=== PATIENT | male | born 1980 | race American Indian/Alaskan Native ===

== ENCOUNTER 2021-10-22 18:49 | Inpatient (IN) | payer SELFPAY ==
[2021-10-22] MEDS ORDERED: ACETAMINOPHEN 500 MG TAB PO ONE (22:27)
[2021-10-22] MEDS ORDERED: IBUPROFEN 600 MG TAB PO ONE (22:27)
[2021-10-22] MEDS ORDERED: predniSONE 20 MG TAB PO ONE (22:28)
--- NOTE | 2021-10-22 22:52 | XRay Report ---
CHEST 2 VIEWS INDICATION / CLINICAL INFORMATION: cough. COMPARISON: None available. FINDINGS: SUPPORT DEVICES: None. HEART / MEDIASTINUM: Heart size and mediastinal contour appear within normal limits. LUNGS / PLEURA: Cavitary lesion with air-fluid level demonstrated right upper lobe with surrounding g round glass/airspace opacification present. Prominence of right hilum suggests possible adenopathy. L eft lung clear. No pneumothorax. BONES: No significant osseous abnormality. ADDITIONAL FINDINGS: No significant additional findings. IMPRESSION: 1. Fluid-filled cavitary lesion right upper lobe with surrounding groundglass and airspace opacificat ion. Differential considerations include intrapulmonary abscess, mycobacterial infection including TB , neoplasm, and infected pulmonary cyst. 2. Right hilar prominence may reflect presence of adenopathy. CT with intravenous contrast recommende d for further evaluation of the chest. Signer Name: Chuck Arias II, MD Signed: 10/22/2021 10:48 PM Workstation Name: [id number]
[2021-10-22] MEDS ORDERED: cefTRIAXone/NS 1 GM/50 ML 1 GM/50 ML BAG IV ONE (23:36)
[2021-10-22] MEDS ORDERED: AZITHROMYCIN 250 MG TAB PO ONE (23:38)
[2021-10-23 00:01] LABS: Basophils % (Auto) 0.4 % (0.0-1.8); Eosinophils # (Auto) 0.1 K/mm3 (0.0-0.4); Hematocrit 31.8 % (35.5-45.6); Hemoglobin 11.5 gm/dl (11.8-15.2); Lymphocytes # (Auto) 1.4 K/mm3 (1.2-5.4); Lymphocytes % (Auto) 14.3 % (13.4-35.0); Mean Corpuscular HGB Conc 36 % (32-34); Mean Corpuscular Volume 99 fl (84-94); Monocytes # (Auto) 0.8 K/mm3 (0.0-0.8); Monocytes % (Auto) 8.6 % (0.0-7.3); Platelet Count 442 K/mm3 (140-440); Red Blood Count 3.21 M/mm3 (3.65-5.03); Red Cell Distribution Width 13.3 % (13.2-15.2)
[2021-10-23 00:19] LABS: Alanine Aminotransferase 14 units/L (7-56); Albumin 2.8 g/dL (3.9-5); BUN/Creatinine Ratio 10; Blood Urea Nitrogen 6 mg/dL (9-20); Calcium 8.7 mg/dL (8.4-10.2); Hemolysis Index 12
--- NOTE | 2021-10-23 02:01 | Cat Scan Report ---
CT CHEST WITH CONTRAST INDICATION / CLINICAL INFORMATION: DYSPNEA, PULMONARY ABSCESS VS TB. TECHNIQUE: Axial CT images were obtained through the chest after IV contrast. All CT scans at this [facility] are performed using CT dose reduction for ALARA by means of automated exposure control. COMPARISON: None available. FINDINGS: CHEST: LOWER NECK: Soft tissues and musculature of the lower neck demonstrate no significant abnormality. Th e thyroid demonstrates no significant abnormality. THORACIC AORTA: No significant abnormality. PULMONARY ARTERY:No significant abnormality. Pulmonary artery not sufficiently opacified to evaluate for pulmonary artery embolus. HEART: No significant abnormality. CORONARY ARTERY CALCIFICATION: Absent -- None. MEDIASTINUM / MARYBETH: No significant abnormality. ESOPHAGUS: No significant abnormality. LYMPH NODES: Right hilar adenopathy with nodes measuring up to 9-10 mm and 16 mm short axis. Borderli ne right paratracheal adenopathy. LUNGS: Airspace consolidation right upper lobe with surrounding areas of groundglass attenuation cont aining thickened intralobular septal lines. Additionally, thick walled cavitary lesion measuring 4.0 x 4.3 cm containing air-fluid level is present. Focal airspace attenuation is noted within the superi or segment right lower lobe as well as along the anterior margin of the right upper lobe and within t he lateral segment of the right middle lobe. PLEURA: No pleural effusion. No pneumothorax. THORACIC SOFT TISSUES: No significant abnormality of the chest wall or upper thoracic musculature. OSSEOUS STRUCTURES: No significant abnormality of included osseous structures. UPPER ABDOMEN: No significant abnormality. ADDITIONAL CHEST FINDINGS: None. IMPRESSION: 1. Consolidating process thought to reflect infection right upper lobe with cavitary fluid-filled les ion compatible with abscess. A specific pattern of nodularity. Differential considerations include se quelae of aspiration, other infectious sources of abscess, mycobacterial infection not entirely exclu ded. Additional airspace attenuation/infectious process suggested lateral segment right middle lobe a nd minimal involvement of anterior right upper lobe. 2. Probable reactive adenopathy right hilum and right paratracheal region. Signer Name: Chuck Arias II, MD Signed: 10/23/2021 1:57 AM Workstation Name: [id number]
--- NOTE | 2021-10-23 02:27 | Emergency Department Report ---
- General Chief Complaint: Upper Respiratory Infection Stated Complaint: DRY COUGH/CHEST PAIN Source: patient Mode of arrival: Ambulatory Limitations: No Limitations - History of Present Illness Initial Comments: Patient is a 40-year-old -Burmese male with no past medical history except heavy tobacco abuse who presents to the ED with complaint of acute onset persistent shortness of breath, persistent cough with yellowish-green sputum, pleuritic chest pain and nasal and sinus congestion for the last 1 week, worse in the last 4 days. Patient states that the symptoms have been constant and persistent and that in the last 24 hours he has not been able to breathe because of worsening pain in his chest with deep inhalation and persistent cough. Patient also complains of persistent diffuse body aches and pains, generalized weakness and fatigue and subjective fever and chills. Patient states that other people near him have had similar symptoms. Patient denies dizziness, syncope, headache, nausea and vomiting, diarrhea, dysuria, urinary frequency and urgency, abdominal pain, back pain, neck pain, sore throat, change in vision, low back pain or hematemesis and hemoptysis. MD Complaint: cough, nasal congestion, other (Shortness of breath) -: Gradual, days(s) (5) Severity: severe Severity scale (0 -10): 7 Quality: sharp, aching Consistency: constant Improves With: nothing Worsens With: nothing Context: sick contacts Associated Symptoms: denies other symptoms, fever, chills, myalgias, headache, rhinorrhea, nasal congestion, cough, shortness of breath. denies: diaphoresis, sore throat, stiff neck, chest pain, abdominal pain, nausea, vomiting, diarrhea, dysuria, rash, right sweats, weight loss, epistaxis, hoarseness, ear pain, other Treatments Prior to Arrival: none - Related Data Allergies Allergy/AdvReac Type Severity Reaction Status Date / Time No Known Allergies Allergy Verified 10/22/21 19:46 ED Review of Systems ROS: Stated complaint: DRY COUGH/CHEST PAIN Other details as noted in HPI Constitutional: chills, fever, malaise Eyes: denies: eye pain, eye discharge, vision change ENT: congestion. denies: ear pain, throat pain Respiratory: cough, shortness of breath. denies: wheezing Cardiovascular: chest pain (Pleuritic chest pain). denies: palpitations Endocrine: no symptoms reported Gastrointestinal: denies: abdominal pain, nausea, diarrhea Genitourinary: denies: urgency, dysuria Musculoskeletal: denies: back pain, joint swelling, arthralgia Skin: denies: rash, lesions Neurological: denies: headache, weakness, paresthesias Psychiatric: denies: anxiety, depression Hematological/Lymphatic: denies: easy bleeding, easy bruising ED Physical Exam - General Limitations: No Limitations General appearance: alert, in no apparent distress - Head Head exam: Present: atraumatic, normocephalic, normal inspection - Eye Eye exam: Present: normal appearance, PERRL, EOMI Pupils: Present: normal accommodation - ENT ENT exam: Present: normal orophraynx, mucous membranes moist, TM's normal bilaterally, normal external ear exam, other (Grossly congested nasal passages) - Neck Neck exam: Present: normal inspection, full ROM. Absent: tenderness - Respiratory Respiratory exam: Present: rhonchi (Right middle and upper lobe). Absent: normal lung sounds bilaterally, respiratory distress, wheezes, rales, stridor, chest wall tenderness, accessory muscle use, decreased breath sounds, prolonged expiratory - Cardiovascular Cardiovascular Exam: Present: regular rate, normal rhythm. Absent: systolic murmur, diastolic murmur, rubs, gallop - GI/Abdominal GI/Abdominal exam: Present: soft, normal bowel sounds. Absent: tenderness, guarding, rebound, hyperactive bowel sounds, hypoactive bowel sounds, mass, bruit - Extremities Exam Extremities exam: Present: normal inspection, full ROM, normal capillary refill. Absent: tenderness - Back Exam Back exam: Present: normal inspection, full ROM. Absent: tenderness, CVA tenderness (R), CVA tenderness (L), muscle spasm, paraspinal tenderness, vertebral tenderness - Neurological Exam Neurological exam: Present: alert, oriented X3, CN II-XII intact, normal gait, reflexes normal - Psychiatric Psychiatric exam: Present: normal affect, normal mood - Skin Skin exam: Present: warm, dry, intact, normal color. Absent: rash ED Course Vital Signs 10/22/21 19:45 Temperature 99.9 F H Pulse Rate 97 H Respiratory 18 Rate Blood Pressure 158/80 [Left] O2 Sat by Pulse 98 Oximetry ED Medical Decision Making - Lab Data Result diagrams: 10/22/21 23:44 10/22/21 23:44 - Radiology Data Radiology results: report reviewed, image reviewed [facility] [address] [place] [address] XRay Report Signed Patient: MARIAH DE GUZMAN MR#: [id number] : 1980 Acct:[id number] Age/Sex: 40 / M ADM Date: 10/22/21 Loc: ED Attending Dr: Ordering Physician: ISRA EDWARDS Date of Service: 10/22/21 Procedure(s): XR chest routine 2V Accession Number(s): [id number] cc: ISRA EDWARDS Fluoro Time In Minutes: CHEST 2 VIEWS INDICATION / CLINICAL INFORMATION: cough. COMPARISON: None available. FINDINGS: SUPPORT DEVICES: None. HEART / MEDIASTINUM: Heart size and mediastinal contour appear within normal limits. LUNGS / PLEURA: Cavitary lesion with air-fluid level demonstrated right upper lobe with surrounding ground glass/airspace opacification present. Prominence of right hilum suggests possible adenopathy. Left lung clear. No pneumothorax. BONES: No significant osseous abnormality. ADDITIONAL FINDINGS: No significant additional findings. IMPRESSION: 1. Fluid-filled cavitary lesion right upper lobe with surrounding groundglass and airspace opacification. Differential considerations include intrapulmonary abscess, mycobacterial infection including TB, neoplasm, and infected pulmonary cyst. 2. Right hilar prominence may reflect presence of adenopathy. CT with intravenous contrast recommended for further evaluation of the chest. Signer Name: Chauncey Shah II, MD Signed: 10/22/2021 10:48 PM Workstation Name: [id number] Transcribed By: ALIDA Dictated By: CHAUNCEY SHAH II, MD Electronically Authenticated By: CHAUNCEY SHAH II, MD Signed Date/Time: 10/22/212247 DD/ 45 TD/TT: [facility] [address] [place] [address] Cat Scan Report Signed Patient: MARIAH DE GUZMAN MR#: [id number] : 1980 Acct:[id number] Age/Sex: 40 / M ADM Date: 10/22/21 Loc: ED Attending Dr: Ordering Physician: ISRA EDWARDS Date of Service: 10/22/21 Procedure(s): CT chest w con Accession Number(s): [id number] cc: ISRA EDWARDS CT CHEST WITH CONTRAST INDICATION / CLINICAL INFORMATION: DYSPNEA, PULMONARY ABSCESS VS TB. TECHNIQUE: Axial CT images were obtained through the chest after IV contrast. All CT scans at this location are performed using CT dose reduction for ALARA by means of automated exposure control. COMPARISON: None available. FINDINGS: CHEST: LOWER NECK: Soft tissues and musculature of the lower neck demonstrate no significant abnormality. The thyroid demonstrates no significant abnormality. THORACIC AORTA: No significant abnormality. PULMONARY ARTERY:No significant abnormality. Pulmonary artery not sufficiently opacified to evaluate for pulmonary artery embolus. HEART: No significant abnormality. CORONARY ARTERY CALCIFICATION: Absent -- None. MEDIASTINUM / MARYBETH: No significant abnormality. ESOPHAGUS: No significant abnormality. LYMPH NODES: Right hilar adenopathy with nodes measuring up to 9-10 mm and 16 mm short axis. Borderline right paratracheal adenopathy. LUNGS: Airspace consolidation right upper lobe with surrounding areas of groundglass attenuation containing thickened intralobular septal lines. Additionally, thick walled cavitary lesion measuring 4.0 x 4.3 cm containing air-fluid level is present. Focal airspace attenuation is noted within the superior segment right lower lobe as well as along the anterior margin of the right upper lobe and within the lateral segment of the right middle lobe. PLEURA: No pleural effusion. No pneumothorax. THORACIC SOFT TISSUES: No significant abnormality of the chest wall or upper thoracic musculature. OSSEOUS STRUCTURES: No significant abnormality of included osseous structures. UPPER ABDOMEN: No significant abnormality. ADDITIONAL CHEST FINDINGS: None. IMPRESSION: 1. Consolidating process thought to reflect infection right upper lobe with cavitary fluid-filled lesion compatible with abscess. A specific pattern of nodularity. Differential considerations include sequelae of aspiration, other infectious sources of abscess, mycobacterial infection not entirely excluded. Additional airspace attenuation/infectious process suggested lateral segment right middle lobe and minimal involvement of anterior right upper lobe. 2. Probable reactive adenopathy right hilum and right paratracheal region. Signer Name: Chauncey Shah II, MD Signed: 10/23/2021 1:57 AM Workstation Name: [id number] Transcribed By: ALIDA Dictated By: CHAUNCEY SHAH II, MD Electronically Authenticated By: CHAUNCEY SHAH II, MD Signed Date/Time: 10/23/21156 DD/ 1 TD/TT: - Medical Decision Making This is a 40-year-old -Burmese male with no past medical history except heavy tobacco abuse who presents to the ED with complaint of acute onset persistent shortness of breath, persistent cough with yellowish-green sputum, pleuritic chest pain and nasal and sinus congestion for the last 1 week, worse in the last 4 days. Patient states that the symptoms have been constant and persistent and that in the last 24 hours he has not been able to breathe because of worsening pain in his chest with deep inhalation and persistent cough. Patient also complains of persistent diffuse body aches and pains, generalized weakness and fatigue and subjective fever and chills. Patient states that other people near him have had similar symptoms. In the ED, patient is alert and oriented x3 and is not in any distress. All lab test results were reviewed and are all nonactionable. Initial chest x-ray showed fluid-filled cavitary lesion right upper lobe with surrounding groundglass and airspace opacification. Differential considerations include intrapulmonary abscess, mycobacterial infection including TB, neoplasm, and infected pulmonary cyst. In addition, it also showed right hilar prominence may reflect presence of adenopathy. CT with intravenous contrast recommended for further evaluation of the chest. The chest CT with IV contrast showed consolidating process thought to reflect infection right upper lobe with cavitary fluid-filled lesion compatible with abscess. A specific pattern of nodularity. Differential considerations include sequelae of aspiration, other infectious sources of abscess, mycobacterial infection not entirely excluded. Additional airspace attenuation/infectious process suggested lateral segment right middle lobe and minimal involvement of anterior right upper lobe. Additionally, it also showed probable reactive adenopathy right hilum and right paratracheal region. Patient was empirically treated in the ED with pain medication and Rocephin 1 g IV as well as azithromycin 500 mg oral tablet and oral steroids prednisone 60 mg p.o. x1. These findings were discussed with the ED attending physician Dr. Rushing who agreed with the plan of care to admit the patient to the hospital for further evaluation given the differential diagnosis in his chest x-ray as well as on chest CT with IV contrast. I therefore paged and discussed the patient's case with the hospitalist physician on-call Dr. Roth who admitted the patient to the hospital for further evaluation and treatment. - Differential Diagnosis Pneumonia; neoplasm; TB; ACS; PE; dissection; bronchitis; Critical care attestation.: If time is entered above; I have spent that time in minutes in the direct care of this critically ill patient, excluding procedure time. ED Disposition Clinical Impression: Shortness of breath, Acute upper respiratory infection, Suspected tuberculosis Right upper lobe pneumonia Qualifiers: Pneumonia type: due to unspecified organism Qualified Code(s): J18.9 - Pneumonia, unspecified organism Disposition: 01 HOME / SELF CARE / HOMELESS Is pt being admited?: Yes Does the pt Need Aspirin: No Condition: Stable Instructions: Shortness of Breath, Adult, [id number], Upper Respiratory Infection, Adult, [id number], Community-Acquired Pneumonia, Adult, [id number], Bacterial Pneumonia (ED) Time of Disposition: 02:28 Print Language: EGYPTIAN
[2021-10-23] MEDS ORDERED: MORPHINE 4 MG/1 ML INJ IV PRN ×2 (03:21→04:19)
[2021-10-23] MEDS ORDERED: ACETAMINOPHEN 325 MG TAB PO PRN ×2 (03:21→04:19)
[2021-10-23] MEDS ORDERED: ONDANSETRON 4 MG/2 ML INJ IV PRN ×2 (03:21→04:19)
[2021-10-23] MEDS ORDERED: MORPHINE 2 MG/1 ML INJ IV PRN (04:19)
[2021-10-23] MEDS ORDERED: MAGNESIUM HYDROXIDE (MOM) ORAL LIQD UDC PO PRN (04:19)
--- NOTE | 2021-10-23 04:27 | History and Physical Report ---
History of Present Illness Date of examination: 10/23/21 Date of admission: 10/23/2021 Chief complaint: Cough Shortness of Breath History of present illness: 40-year-old -[place]ib[place] male with no significant past medical history presenting to the emergency room today complaining of shortness of breath and cough which has been ongoing for the past 5 to 6 days. Cough has been productive of some greenish or yellowish sputum. He has had some associated chest discomfort with a cough. He denies any fever or chills, no headache or dizziness and no diaphoresis. He has had some nausea but no vomiting and no abdominal pain. Patient denies any sick contacts and no recent travel. Denies any contact with anyone with COVID-19. Patient indicates that he has been fully vaccinated against COVID-19 and has also had a booster shots. Patient states he has been in an [facility] program-[employer]-whereby they are being housed and helped in getting employment. Work-up in the emergency room today, labs were essentially unremarkable. However. Chest x-ray shows fluid-filled cavitary lesion in the right upper lobe with surrounding groundglass airspace opacification. Differentials include intra pulmonary abscess, Mycobacterium infection including TB, neoplasm, infected pulmonary cyst. Right hilar prominence may reflect the presence of adenopathy. CT with IV contrast was recommended. CT scan of the chest reveals: 1. Consolidating process thought to reflect infection right upper lobe with cavitary fluid-filled lesion compatible with abscess. A specific pattern of nodularity. Differential considerations include sequelae of aspiration, other infectious sources of abscess, mycobacterial infection not entirely excluded. Additional airspace attenuation/infectious process suggested lateral segment right middle lobe and minimal involvement of anterior right upper lobe. 2. Probable reactive adenopathy right hilum and right paratracheal region. Patient started on empiric IV antibiotics. Past History Past Medical History: No medical history Past Surgical History: No surgical history Social history: smoking (Current tobbacco use) Family history: no significant family history Medications and Allergies Allergies Allergy/AdvReac Type Severity Reaction Status Date / Time No Known Allergies Allergy Verified 10/22/21 19:46 Active Meds: Active Medications Acetaminophen (Acetaminophen 325 Mg Tab) 650 mg PO Q4H PRN PRN Reason: Pain MILD(1-3)/Fever >100.5/[place] Hydrocodone Bitart/Acetaminophen (Hydrocodone/Acetaminophen 5-325 Mg Tab) 2 each PO Q6H PRN PRN Reason: Pain, Moderate (4-6) Morphine Sulfate (Morphine 4 Mg/1 Ml Inj) 4 mg IV Q4H PRN PRN Reason: Pain , Severe (7-10) Ondansetron HCl (Ondansetron 4 Mg/2 Ml Inj) 4 mg IV Q8H PRN PRN Reason: Nausea And Vomiting Sodium Chloride (Sodium Chloride 0.9% 10 Ml Flush Syringe) 10 ml IV PRN PRN PRN Reason: LINE FLUSH Review of Systems Constitutional: no fever, no chills Ears, nose, mouth and throat: no nasal congestion, no sore throat Cardiovascular: no chest pain, no palpitations Respiratory: cough, cough with sputum Gastrointestinal: no abdominal pain, no nausea, no vomiting, no diarrhea Genitourinary Male: no dysuria, no hematuria, no flank pain Musculoskeletal: no neck pain, no low back pain Integumentary: no rash, no pruritis Neurological: no headaches, no confusion Psychiatric: no anxiety, no depression Endocrine: no polyphagia, no polydipsia, no polyuria, no nocturia Exam - Constitutional Vitals: Temp Pulse Resp BP Pulse Ox 99.9 F H 97 H 18 158/80 98 10/22/21 19:45 10/22/21 19:45 10/22/21 19:45 10/22/21 19:45 10/22/21 19:45 General appearance: Present: no acute distress, well-nourished - EENT Eyes: Present: PERRL, EOM intact. Absent: scleral icterus ENT: hearing intact, clear oral mucosa, dentition normal - Neck Neck: Present: supple, normal ROM - Respiratory Respiratory effort: normal Respiratory: bilateral: diminished (Few rhonchi) - Cardiovascular Rhythm: regular Heart Sounds: Present: S1 & S2. Absent: gallop, systolic murmur, diastolic murmur, rub, click - Extremities Extremities: no ischemia, pulses intact, pulses symmetrical, No edema, normal temperature, normal color, Full ROM Peripheral Pulses: within normal limits - Abdominal General gastrointestinal: Present: soft, non-tender, non-distended, normal bowel sounds. Absent: mass - Integumentary Integumentary: Present: clear, warm, dry, normal turgor. Absent: rash - Musculoskeletal Musculoskeletal: strength equal bilaterally - Psychiatric Psychiatric: appropriate mood/affect, intact judgment & insight, memory intact, cooperative - Neurologic Neurologic: CNII-XII intact, no focal deficits, moves all extremities HEART Score - HEART Score Troponin: Troponin T < 0.010 ng/mL (0.00-0.029) 10/22/21 23:44 Results - Labs CBC & Chem 7: 10/22/21 23:44 10/22/21 23:44 Labs: Abnormal lab results 10/22/21 10/22/21 Range/Units 23:44 23:44 RBC 3.21 L (3.65-5.03) M/mm3 Hgb 11.5 L (11.8-15.2) gm/dl Hct 31.8 L (35.5-45.6) % MCV 99 H (84-94) fl MCH 36 H (28-32) pg MCHC 36 H (32-34) % Plt Count 442 H (140-440) K/mm3 [place] % (Auto) 8.6 H (0.0-7.3) % Seg Neutrophils % 75.7 H (40.0-70.0) % BUN 6 L (9-20) mg/dL Creatinine 0.6 L (0.8-1.3) mg/dL Glucose 107 H (75-100) mg/dL Albumin 2.8 L (3.9-5) g/dL Assessment and Plan Assessment: 1. Pneumonia 2. Possible lung abscess 3. Tobacco abuse Plan: 1. Patient admitted and placed on empiric IV antibiotics. 2. We will place consult to pulmonology and infectious disease for evaluation and recommendations. 3. Patient counseled on quitting tobacco abuse. DVT prophylaxis: Subcutaneous heparin CODE STATUS: Full code
[2021-10-23] MEDS ORDERED: VANCOMYCIN PHARMACY TO DOSE IV SCH (05:00)
[2021-10-23] MEDS ORDERED: VANCOMYCIN 1,250 MG in SODIUM CHLORIDE 0.9% 250ML 250 ML IV ONE (06:00)
[2021-10-23] MEDS: SODIUM CHLORIDE 0.9% 1000 ML 1,000 ML IV SCH (06:40)
[2021-10-23] MEDS: HEPARIN 5,000 UNIT/1 ML VIAL SUB-Q SCH ×3 (06:40→22:01)
[2021-10-23] MEDS: CEFEPIME/NS 2 GM/100 ML 2 GM/100 ML BAG IV SCH ×3 (08:38→21:58)
[2021-10-23 09:53] LABS: Amphetamine Screen,Urine Negative; Benzodiazepines Screen,Urine Negative; Cocaine Screen,Urine Negative; Methadone Screen,Urine Negative; Opiate Screen,Urine Negative
[2021-10-23 10:03] LABS: Cannabinoid Screen,Urine Positive
[2021-10-23 10:17] LABS: Bilirubin,Urine NEG (Negative); Blood,Urine NEG (Negative); Color,Urine Yellow (Yellow); Urobilinogen,Urine < 2.0 mg/dL (<2.0)
[2021-10-23 10:21] LABS: Mucus,Urine FEW /HPF; WBC,Urine < 1.0 /HPF (0.0-6.0)
[2021-10-23] MEDS: VANCOMYCIN/NS 1 GM/250 ML 1 GM/250 ML BAG IV SCH ×2 (15:16→23:40)
--- NOTE | 2021-10-23 20:43 | Event Note ---
Date: 10/23/21 Patient reevaluated Stable On 2 liters NC O2
--- NOTE | 2021-10-23 23:47 | Consultation ---
History of Present Illness Consult date: 10/23/21 Requesting physician: RAMILA CHAPMAN Reason for consult: dyspnea History of present illness: 40 yo with 5-7 days of cough with yellow sputum, SOB, and L anterior pleuritic chest pain. Denies fevers, chills, hemoptysis. Admits to smoking cigarettes, THC, and crack cocaine. Denies IVDA. Past History Past Medical History: No medical history Past Surgical History: No surgical history Social history: smoking (Current tobbacco use), full code. denies: prescription drug abuse, IV drug use Family history: no significant family history (no pulm issues reported) Medications and Allergies Allergies Allergy/AdvReac Type Severity Reaction Status Date / Time No Known Allergies Allergy Verified 10/22/21 19:46 Home Medications Medication Instructions Recorded Confirmed Last Taken Type No Known Home Medications [No 10/23/21 10/23/21 Unknown History Reported Home Medications] Active Meds: Active Medications Acetaminophen (Acetaminophen 325 Mg Tab) 650 mg PO Q4H PRN PRN Reason: Pain MILD(1-3)/Fever >100.5/[facility] Hydrocodone Bitart/Acetaminophen (Hydrocodone/Acetaminophen 5-325 Mg Tab) 2 each PO Q6H PRN PRN Reason: Pain, Moderate (4-6) Heparin Sodium (Porcine) (Heparin 5,000 Unit/1 Ml Vial) 5,000 unit SUB-Q Q8HR KACEY Last Admin: 10/23/21 22:01 Dose: 5,000 unit Sodium Chloride (Nacl 0.9% 1000 Ml) 1,000 mls @ 75 mls/hr IV DIRECT KACEY Last Admin: 10/23/21 06:40 Dose: 75 mls/hr Cefepime HCl (Cefepime/Ns 2 Gm/100 Ml) 2 gm in 100 mls @ 200 mls/hr IV Q8H KACEY; Protocol Last Admin: 10/23/21 21:58 Dose: 200 mls/hr Vancomycin HCl (Vancomycin/Ns 1 Gm/250 Ml) 1 gm in 250 mls @ 250 mls/hr IV Q8H KACEY Last Admin: 10/23/21 23:40 Dose: 250 mls/hr Magnesium Hydroxide (Magnesium Hydroxide (Mom) Oral Liqd Udc) 30 ml PO Q4H PRN PRN Reason: Constipation Morphine Sulfate (Morphine 4 Mg/1 Ml Inj) 4 mg IV Q4H PRN PRN Reason: Pain , Severe (7-10) Morphine Sulfate (Morphine 2 Mg/1 Ml Inj) 2 mg IV Q4H PRN PRN Reason: Pain, Moderate (4-6) Ondansetron HCl (Ondansetron 4 Mg/2 Ml Inj) 4 mg IV Q8H PRN PRN Reason: Nausea And Vomiting Sodium Chloride (Sodium Chloride 0.9% 10 Ml Flush Syringe) 10 ml IV PRN PRN PRN Reason: LINE FLUSH Sodium Chloride (Sodium Chloride 0.9% 10 Ml Flush Syringe) 10 ml IV BID KACEY Last Admin: 10/23/21 23:40 Dose: 10 ml Review of Systems All systems: negative Physical Examination Vital signs: Vital Signs Temp Pulse Resp BP Pulse Ox 99.9 F H 97 H 18 158/80 98 10/22/21 19:45 10/22/21 19:45 10/22/21 19:45 10/22/21 19:45 10/22/21 19:45 General appearance: no acute distress, alert Eyes: non-icteric Neck: supple Effort: normal Ascultation: Bilateral: clear Cardiovascular: regular rate and rhythm (no mrg) Gastrointestinal: normoactive bowel sounds, soft, non-tender, non-distended Integumentary: normal Extremities: no cyanosis, no edema, pink and warm normal mental status, non-focal exam, pupils equal and round mood appropriate, affect normal Results - Laboratory Findings CBC and BMP: 10/22/21 23:44 10/22/21 23:44 Abnormal lab findings: Abnormal Labs 10/22/21 10/22/21 10/23/21 23:44 23:44 09:00 RBC 3.21 L Hgb 11.5 L Hct 31.8 L MCV 99 H MCH 36 H MCHC 36 H Plt Count [address] [place] % (Auto) 8.6 H Seg Neutrophils % 75.7 H BUN 6 L Creatinine 0.6 L Glucose 107 H Albumin 2.8 L Ur Specific [place] 1.041 H - Diagnostic Findings Chest x-ray: report reviewed, image reviewed CT scan - chest: report reviewed, image reviewed Assessment and Plan Imp: 1. RUL cavitary/necrotizing pneumonia, r/o TB 2. Polysubstance abuse 3. Chronic nicotine dependence, cigarettes 4. Severe protein calorie malnutrition 5. Normocytic anemia Rec: 1. Airborne precautions 2. Sputum AFB smear/culture x 3 3. Quantiferon gold 4. Sputum culture for routine bacteria 5. Rapid HIV testing 6. Cont. broad spectrum ABX pending the above 7. D/c smoking/drugs Plan of care reviewed w/ patient, he understands/agrees Thanks for the consult.
[2021-10-24] MEDS: CEFEPIME/NS 2 GM/100 ML 2 GM/100 ML BAG IV SCH ×3 (05:05→21:39)
[2021-10-24] MEDS: HEPARIN 5,000 UNIT/1 ML VIAL SUB-Q SCH ×3 (05:08→21:40)
[2021-10-24 06:55] LABS: Basophils # (Auto) 0.1 K/mm3 (0.0-0.1); Basophils % (Auto) 0.6 % (0.0-1.8); Eosinophils # (Auto) 0.2 K/mm3 (0.0-0.4); Eosinophils % (Auto) 1.9 % (0.0-4.3); Hematocrit 34.3 % (35.5-45.6); Hemoglobin 11.7 gm/dl (11.8-15.2); Lymphocytes # (Auto) 1.4 K/mm3 (1.2-5.4); Lymphocytes % (Auto) 13.8 % (13.4-35.0); Mean Corpuscular HGB Conc 34 % (32-34); Mean Corpuscular Volume 101 fl (84-94); Monocytes # (Auto) 0.6 K/mm3 (0.0-0.8); Platelet Count 541 K/mm3 (140-440); Red Blood Count 3.39 M/mm3 (3.65-5.03); Red Cell Distribution Width 13.5 % (13.2-15.2)
[2021-10-24 07:08] LABS: Blood Urea Nitrogen 11 mg/dL (9-20); Calcium 8.7 mg/dL (8.4-10.2); Hemolysis Index 1
[2021-10-24 07:11] LABS: BUN/Creatinine Ratio 18
--- NOTE | 2021-10-24 08:12 | Progress Note ---
Assessment and Plan - Patient Problems (1) Cavitary pneumonia Current Visit: Yes Status: Acute (2) Cough Current Visit: Yes Status: Acute (3) Anemia Current Visit: Yes Status: Acute (4) Polysubstance abuse Current Visit: Yes Status: Acute (5) Nicotine dependence Current Visit: Yes Status: Acute Subjective Interval history: no new complaints. Reports that he has given 1 sputum sample to date Objective Vital Signs - 12hr 10/23/21 10/24/21 20:43 05:00 Temperature 98.6 F Pulse Rate 81 Respiratory 20 Rate Blood Pressure 110/68 O2 Sat by Pulse 98 98 Oximetry Constitutional: no acute distress, alert Eyes: non-icteric Neck: supple Effort: normal Ascultation: Bilateral: clear Cardiovascular: regular rate and rhythm (no mrg) Gastrointestinal: normoactive bowel sounds, soft, non-tender, non-distended Integumentary: normal Extremities: no cyanosis, no edema, pink and warm Neurologic: normal mental status, non-focal exam, pupils equal and round Psychiatric: mood appropriate, affect normal CBC and BMP: 10/24/21 06:27 10/24/21 06:27 Abnormal lab findings: Abnormal Labs 10/22/21 10/22/21 10/23/21 23:44 23:44 09:00 RBC 3.21 L Hgb 11.5 L Hct 31.8 L MCV 99 H MCH 36 H MCHC 36 H Plt Count 442 H [place] % (Auto) 8.6 H Seg Neutrophils % 75.7 H Seg Neutrophils # BUN 6 L Creatinine 0.6 L Glucose 107 H Albumin 2.8 L Ur Specific [place] 1.041 H 10/24/21 10/24/21 06:27 06:27 RBC 3.39 L Hgb 11.7 L Hct 34.3 L MCV 101 H MCH 35 H MCHC Plt Count 541 H [place] % (Auto) Seg Neutrophils % 77.7 H Seg Neutrophils # 7.8 H BUN Creatinine 0.6 L Glucose Albumin Ur Specific [place] Chest x-ray: report reviewed, image reviewed CT scan - chest: report reviewed, image reviewed
--- NOTE | 2021-10-24 08:16 | Progress Note ---
Assessment and Plan Assessment and plan: --RUL cavitary/necrotizing pneumonia, r/o TB Continue empiric antibiotics, Follow cultures Pulmonary evaluation noted and appreciated TB testing is in progress Continue oxygen titrate O2 sats to more than 90% Sputum cultures, AFB smears -- Polysubstance abuse; Strongly advised to quit recreational drug use Continue supportive care -- Chronic nicotine dependence, cigarettes Smoking cessation counseling done, risks and consequences and Sequelae of chronic tobacco use discussed in detail with the patient Answered all his questions, verbalized understanding Spent total 17 minutes --Severe protein calorie malnutrition; Nutrition supplements and supportive care Nutrition consult --Normocytic anemia; Probably secondary to underlying disease process Closely monitor H&H and transfuse as needed -- DVT prophylaxis; Subcu heparin Closely monitor the patient and adjust the management as needed Plan of care reviewed with the patient and his nurse Consults and recommendations noted and appreciated Closely monitor the patient and adjust management as needed Vital signs reviewed HIV test negative Funes PCR pending Closely monitor the patient and adjust management as needed Plan of care reviewed with patient's nurse and case management Consult ID History Interval history: I have seen and examined the patient at the bedside in droplet and airborne isolation room. Patient with right upper lobe cavitary lesion, being evaluated to rule out tuberculosis Pulmonary following, patient feels better anxious to go home Vital signs noted Hospitalist Physical - Constitutional Vitals: Temp Pulse Resp BP Pulse Ox 98.6 F 81 20 110/68 98 10/23/21 20:43 10/23/21 20:43 10/23/21 20:43 10/23/21 20:43 10/24/21 05:00 General appearance: Present: no acute distress, well-nourished - EENT Eyes: Present: PERRL, EOM intact - Neck Neck: Present: supple, normal ROM - Respiratory Respiratory effort: normal Respiratory: right: rhonchi, bilateral: diminished, negative: rales, wheezing - Cardiovascular Rhythm: regular Heart Sounds: Present: S1 & S2 - Extremities Extremities: no ischemia, No edema - Abdominal General gastrointestinal: soft, non-tender, non-distended, normal bowel sounds - Integumentary Integumentary: Present: clear, warm - Psychiatric Psychiatric: appropriate mood/affect, cooperative - Neurologic Neurologic: moves all extremities HEART Score - HEART Score Troponin: Troponin T < 0.010 ng/mL (0.00-0.029) 07/23/22 23:44 Results - Labs CBC & Chem 7: 10/24/21 06:27 10/24/21 06:27 Labs: Laboratory Last Values WBC 10.1 K/mm3 (4.5-11.0) 10/24/21 06:27 RBC 3.39 M/mm3 (3.65-5.03) L 10/24/21 06:27 Hgb 11.7 gm/dl (11.8-15.2) L 10/24/21 06:27 Hct 34.3 % (35.5-45.6) L 10/24/21 06: MCV 101 fl (84-94) H 10/24/21 06: MCH 35 pg (28-32) H 10/24/21 06: MCHC 34 % (32-34) 10/24/21 06: RDW 13.5 % (13.2-15.2) 10/24/21 06:27 Plt Count 541 K/mm3 (140-440) H 10/24/21 06:27 Lymph % (Auto) 13.8 % (13.4-35.0) 10/24/21 06: [place] % (Auto) 6.0 % (0.0-7.3) 10/24/21 06: Eos % (Auto) 1.9 % (0.0-4.3) 10/24/21 06: Baso % (Auto) 0.6 % (0.0-1.8) 10/24/21 06: Lymph # (Auto) 1.4 K/mm3 (1.2-5.4) 10/24/21 06: [place] # (Auto) 0.6 K/mm3 (0.0-0.8) 10/24/21 06:27 Eos # (Auto) 0.2 K/mm3 (0.0-0.4) 10/24/21 06: Baso # (Auto) 0.1 K/mm3 (0.0-0.1) 10/24/21 06: Seg Neutrophils % 77.7 % (40.0-70.0) H 10/24/21 06:27 Seg Neutrophils # 7.8 K/mm3 (1.8-7.7) H 10/24/21 06:27 Sodium 138 mmol/L (137-145) 10/24/21 06:27 Potassium 4.1 mmol/L (3.6-5.0) 10/24/21 06:27 Chloride 104.7 mmol/L (98-107) 10/24/21 06:27 Carbon Dioxide 26 mmol/L (22-30) 10/24/21 06:27 Anion Gap 11 mmol/L 10/24/21 06:27 BUN 11 mg/dL (9-20) 10/24/21 06:27 Creatinine 0.6 mg/dL (0.8-1.3) L 10/24/21 06:27 Estimated GFR > 60 ml/min 10/24/21 06:27 BUN/Creatinine Ratio 18 % 10/24/21 06:27 Glucose 94 mg/dL (75-100) 10/24/21 06:27 Calcium 8.7 mg/dL (8.4-10.2) 10/24/21 06:27 Total Bilirubin 0.30 mg/dL (0.1-1.2) 10/22/21 23:44 AST 19 units/L (5-40) 10/22/21 23:44 ALT 14 units/L (7-56) 10/22/21 23:44 Alkaline Phosphatase 40 units/L (35-129) 10/22/21 23:44 Troponin T < 0.010 ng/mL (0.00-0.029) 10/22/21 23:44 Total Protein 6.6 g/dL (6.3-8.2) 10/22/21 23:44 Albumin 2.8 g/dL (3.9-5) L 10/22/21 23:44 Albumin/Globulin Ratio 0.7 % 10/22/21 23:44 Urine Color Yellow (Yellow) 10/23/21 09:00 Urine Turbidity Clear (Clear) 10/23/21 09:00 Urine pH 7.0 (5.0-7.0) 10/23/21 09:00 Ur Specific [place] 1.041 (1.003-1.030) H 10/23/21 09:00 Urine Protein 30 mg/dl mg/dL (Negative) 10/23/21 09:00 Urine Glucose (UA) 50 mg/dL (Negative) 10/23/21 09:00 Urine Ketones Neg mg/dL (Negative) 10/23/21 09:00 Urine Blood Neg (Negative) 10/23/21 09:00 Urine Nitrite Neg (Negative) 10/23/21 09:00 Urine Bilirubin Neg (Negative) 10/23/21 09:00 Urine Urobilinogen < 2.0 mg/dL (<2.0) 10/23/21 09:00 Ur Leukocyte Esterase Neg (Negative) 10/23/21 09:00 Urine WBC (Auto) < 1.0 /HPF (0.0-6.0) 10/23/21 09:00 Urine RBC (Auto) 1.0 /HPF (0.0-6.0) 10/23/21 09:00 U Epithel Cells (Auto) < 1.0 /HPF (0-13.0) 10/23/21 09:00 Urine Mucus Few /HPF 10/23/21 09:00 Urine Opiates Screen Negative 10/23/21 09:00 Urine Methadone Screen Negative 10/23/21 09:00 Ur Barbiturates Screen Negative 10/23/21 09:00 Ur Phencyclidine Scrn Negative 10/23/21 09:00 Ur Amphetamines Screen Negative 10/23/21 09:00 U Benzodiazepines Scrn Negative 10/23/21 09:00 Urine Cocaine Screen Negative 10/23/21 09:00 U Marijuana (THC) Screen Positive 10/23/21 09:00 Drugs of Abuse Note Disclamer 10/23/21 09:00 HIV 1&2 Antibody Rapid Non react (Non React) 10/24/21 00:48 HIV P24 Antigen Non react (Non React) 10/24/21 00:48 Microbiology: Microbiology 10/22/21 23:44 Peripheral/Venous Blood Culture - Preliminary NO GROWTH AFTER 24 HOURS 10/23/21 00:31 Peripheral/Venous Blood Culture - Preliminary NO GROWTH AFTER 24 HOURS Real/IV: Voiding Method Toilet Active Medications - Current Medications Current Medications: Generic Name Dose Route Start Last Admin Trade Name Freq PRN Reason Stop Dose Admin Acetaminophen 650 mg 10/23/21 03:21 Acetaminophen 325 Mg Tab PO Q4H PRN Pain MILD(1-3)/Fever >100.5/[place] Hydrocodone Bitart/Acetaminophen 2 each 10/23/21 03:21 Hydrocodone/Acetaminophen 5-325 Mg Tab PO Q6H PRN Pain, Moderate (4-6) Heparin Sodium (Porcine) 5,000 unit 10/23/21 06:00 10/24/21 05:08 Heparin 5,000 Unit/1 Ml Vial SUB-Q 5,000 unit Q8HR KACEY Administration Sodium Chloride 1,000 mls @ 75 mls/hr 10/23/21 04:30 10/23/21 06:40 Nacl 0.9% 1000 Ml IV 75 mls/hr DIRECT KACEY Administration Cefepime HCl 2 gm in 100 mls @ 200 mls/hr 10/23/21 06:00 10/24/21 06:40 Cefepime/Ns 2 Gm/100 Ml IV Infused Q8H KACEY Infusion Protocol Vancomycin HCl 1 gm in 250 mls @ 250 mls/hr 10/23/21 15:00 10/24/21 05:15 Vancomycin/Ns 1 Gm/250 Ml IV Infused Q8H KACEY Infusion Magnesium Hydroxide 30 ml 10/23/21 04:19 Magnesium Hydroxide (Mom) Oral Liqd Udc PO Q4H PRN Constipation Morphine Sulfate 4 mg 10/23/21 03:21 Morphine 4 Mg/1 Ml Inj IV Q4H PRN Pain , Severe (7-10) Morphine Sulfate 2 mg 10/23/21 04:19 Morphine 2 Mg/1 Ml Inj IV Q4H PRN Pain, Moderate (4-6) Ondansetron HCl 4 mg 10/23/21 03:21 Ondansetron 4 Mg/2 Ml Inj IV Q8H PRN Nausea And Vomiting Sodium Chloride 10 ml 10/23/21 03:21 Sodium Chloride 0.9% 10 Ml Flush Syringe IV PRN PRN LINE FLUSH Sodium Chloride 10 ml 10/23/21 10:00 10/23/21 23:40 Sodium Chloride 0.9% 10 Ml Flush Syringe IV 10 ml BID KACEY Administration
[2021-10-24] MEDS: VANCOMYCIN/NS 1 GM/250 ML 1 GM/250 ML BAG IV SCH ×2 (09:00→18:47)
--- NOTE | 2021-10-24 10:01 | Electrocardiograph Report ---
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
--- NOTE | 2021-10-24 10:01 | Electrocardiograph Report ---
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
--- NOTE | 2021-10-24 18:37 | Consultation ---
History of Present Illness - Reason for Consult Consult date: 10/24/21 - History of Present Illness 40-year-old male with no past medical history presented to hospital complaining of shortness of breath and cough. This began 5 to 6 days prior to admission. The cough has been productive of sputum. He otherwise denies any other complaints. He is fully vaccinated against COVID. He was found on admission to have a likely pulmonary abscess. Given his history of substance abuse probably likely to aspiration. Afebrile since admission with a white count 10.1. Blood cultures no growth so far. Sputum cultures no growth so far, contaminated. Currently on cefepime, vancomycin. HIV negative. Normal renal function. Imaging personally reviewed: Chest CT: Consolidative process in the right upper lobe consistent with abscess. Reactive adenopathy Review of Systems: Bold if positive, otherwise negative General: fevers, chills, rigors HEENT: visual disturbance, diplopia, eye pain Respiratory: cough, sputum, hemoptysis, shortness of breath Cardiovascular: chest pain, syncope Gastrointestinal: nausea, vomiting, diarrhea, abdominal pain Genitourinary: dysuria, hematuria, flank pain Musculoskeletal: neck pain, back pain, joint pain, edema Neurologic: headaches, seizures Hematologic: easy bruising or bleeding Endocrine: night sweats, acute weight loss Skin: rash, jaundice, redness Psychiatric: suicidal, homicidal ideation Past History Past Medical History: No medical history Past Surgical History: No surgical history Social history: smoking (Current tobbacco use), full code. denies: prescription drug abuse, IV drug use Family history: no significant family history (no pulm issues reported) Medications and Allergies Allergies Allergy/AdvReac Type Severity Reaction Status Date / Time No Known Allergies Allergy Verified 10/22/21 19:46 Home Medications Medication Instructions Recorded Confirmed Last Taken Type No Known Home Medications [No 10/23/21 10/23/21 Unknown History Reported Home Medications] Active Meds: Active Medications Acetaminophen (Acetaminophen 325 Mg Tab) 650 mg PO Q4H PRN PRN Reason: Pain MILD(1-3)/Fever >100.5/[place] Hydrocodone Bitart/Acetaminophen (Hydrocodone/Acetaminophen 5-325 Mg Tab) 2 each PO Q6H PRN PRN Reason: Pain, Moderate (4-6) Heparin Sodium (Porcine) (Heparin 5,000 Unit/1 Ml Vial) 5,000 unit SUB-Q Q8HR [facility] Last Admin: 10/24/21 17:44 Dose: 5,000 unit Sodium Chloride (Nacl 0.9% 1000 Ml) 1,000 mls @ 75 mls/hr IV DIRECT [facility] Last Admin: 10/23/21 06:40 Dose: 75 mls/hr Cefepime HCl (Cefepime/Ns 2 Gm/100 Ml) 2 gm in 100 mls @ 200 mls/hr IV Q8H [facility]; Protocol Last Admin: 10/24/21 17:43 Dose: 200 mls/hr Vancomycin HCl (Vancomycin/Ns 1 Gm/250 Ml) 1 gm in 250 mls @ 250 mls/hr IV Q8H [facility] Last Infusion: 10/24/21 10:00 Dose: Infused Magnesium Hydroxide (Magnesium Hydroxide (Mom) Oral Liqd Udc) 30 ml PO Q4H PRN PRN Reason: Constipation Morphine Sulfate (Morphine 4 Mg/1 Ml Inj) 4 mg IV Q4H PRN PRN Reason: Pain , Severe (7-10) Morphine Sulfate (Morphine 2 Mg/1 Ml Inj) 2 mg IV Q4H PRN PRN Reason: Pain, Moderate (4-6) Ondansetron HCl (Ondansetron 4 Mg/2 Ml Inj) 4 mg IV Q8H PRN PRN Reason: Nausea And Vomiting Sodium Chloride (Sodium Chloride 0.9% 10 Ml Flush Syringe) 10 ml IV PRN PRN PRN Reason: LINE FLUSH Sodium Chloride (Sodium Chloride 0.9% 10 Ml Flush Syringe) 10 ml IV BID [facility] Last Admin: 10/24/21 17:44 Dose: 10 ml Physical Examination - Physical Exam Narrative exam: Physical Exam: Constitutional: Alert, cooperative. No acute distress Head, Ears, Nose: Normocephalic, atraumatic. External ears, nose normal Eyes: Conjunctivae/corneas clear. No icterus. No ptosis. Neck: Supple, no meningeal signs Oral: dentition fair, no thrush Cardiovascular: S1, S2 normal. Respiratory: Good air entry, clear to auscultation bilaterally GI: Soft, non-tender; bowel sounds normal. No peritoneal signs. Musculoskeletal: No pedal edema, no cyanosis. Skin: No rash or abscess Hem/Lymphatic: No palpable cervical or supraclavicular nodes. No lymphangitis Psych: Mood ok. Affect normal Neurological: Awake, alert, oriented. No gross abnormality - Constitutional Vitals: Vital Signs Temp Pulse Resp BP Pulse Ox 98.6 F 81 20 110/68 98 10/23/21 20:43 10/23/21 20:43 10/23/21 20:43 10/23/21 20:43 10/24/21 05:00 Temperature -Last 24 Hours Temperature 98.6 F Results - Labs CBC & Chem 7: 10/24/21 06:27 10/24/21 06:27 Labs: Abnormal lab results 10/24/21 10/24/21 Range/Units 06:27 06:27 RBC 3.39 L (3.65-5.03) M/mm3 Hgb 11.7 L (11.8-15.2) gm/dl Hct 34.3 L (35.5-45.6) % MCV 101 H (84-94) fl MCH 35 H (28-32) pg Plt Count 541 H (140-440) K/mm3 Seg Neutrophils % 77.7 H (40.0-70.0) % Seg Neutrophils # 7.8 H (1.8-7.7) K/mm3 Creatinine 0.6 L (0.8-1.3) mg/dL Assessment and Plan Cultures: Blood culture no growth so far Sputum culture contaminated A/P: 40-year-old man no past medical history now with: #Cavitary pneumonia: Likely pulmonary abscess given his history of substance abuse and likely related to his aspiration which is typically Klebsiella in nature. Awaiting AFB rule out Mycobacterium. #Polysubstance abuse Recs: -Check procalcitonin -Check Aspergillus antigen -Ordered MRSA PCR, if negative stop vancomycin -Continue cefepime for now -Add metronidazole -Follow-up AFB cultures Thank you for the consult, we will continue to follow. Burak Dickerson MD [facility] O: [phone] F: [phone]
[2021-10-24] MEDS: metroNIDAZOLE 500 MG TAB PO SCH (21:41)
[2021-10-25] MEDS: VANCOMYCIN/NS 1 GM/250 ML 1 GM/250 ML BAG IV SCH ×3 (00:53→18:00)
[2021-10-25] MEDS: guaiFENesin DM 200/20 MG ORAL LIQD 10 ML PO PRN ×3 (01:01→22:50)
[2021-10-25] MEDS: HEPARIN 5,000 UNIT/1 ML VIAL SUB-Q SCH ×3 (05:09→21:48)
[2021-10-25] MEDS: metroNIDAZOLE 500 MG TAB PO SCH ×3 (05:09→21:48)
[2021-10-25] MEDS: CEFEPIME/NS 2 GM/100 ML 2 GM/100 ML BAG IV SCH ×3 (05:10→21:47)
--- NOTE | 2021-10-25 08:33 | Progress Note ---
Assessment and Plan Assessment and plan: ID evaluation and recommendations noted and appreciated --RUL cavitary/necrotizing pneumonia, r/o TB Continue empiric antibiotics, Follow cultures Pulmonary evaluation noted and appreciated TB testing is in progress Continue oxygen titrate O2 sats to more than 90% Sputum cultures, AFB smears -- Polysubstance abuse; Strongly advised to quit recreational drug use Continue supportive care -- Chronic nicotine dependence, cigarettes Smoking cessation counseling done, risks and consequences and Sequelae of chronic tobacco use discussed in detail with the patient Answered all his questions, verbalized understanding Spent total 17 minutes --Severe protein calorie malnutrition; Nutrition supplements and supportive care Nutrition consult --Normocytic anemia; Probably secondary to underlying disease process Closely monitor H&H and transfuse as needed -- DVT prophylaxis; Subcu heparin Closely monitor the patient and adjust the management as needed Plan of care reviewed with the patient and his nurse Consults and recommendations noted and appreciated Closely monitor the patient and adjust management as needed Vital signs reviewed HIV test negative 10/25/2021; ID evaluation recommendation noted and appreciated Extensive work-up is in progress, continue airborne isolation Funes PCR negative Follow AFB smears AFB cultures Gold interferon test reports History Interval history: I have seen and examined the patient at the bedside Patient's chart and medications reviewed. Patient is anxious to go home He wants to know what is going on Explained in detail patient's cavitary lesion the right side of the lung And that pulmonary and ID are following Send the whole lot of test to rule out TB, waiting for reports Patient is anxious to go home Vital signs noted Hospitalist Physical - Constitutional Vitals: Temp Pulse Resp BP Pulse Ox 98.4 F 65 16 107/66 99 10/25/21 01:11 10/25/21 01:11 10/25/21 01:11 10/25/21 01:11 10/25/21 02:18 General appearance: Present: no acute distress, well-nourished - EENT Eyes: Present: PERRL, EOM intact - Neck Neck: Present: supple, normal ROM - Respiratory Respiratory effort: normal Respiratory: right: rhonchi, bilateral: diminished, negative: rales, wheezing - Cardiovascular Rhythm: regular Heart Sounds: Present: S1 & S2 - Extremities Extremities: no ischemia, No edema - Abdominal General gastrointestinal: soft, non-tender, non-distended, normal bowel sounds - Integumentary Integumentary: Present: clear, warm - Psychiatric Psychiatric: appropriate mood/affect, cooperative - Neurologic Neurologic: CNII-XII intact, moves all extremities HEART Score - HEART Score Troponin: Troponin T < 0.010 ng/mL (0.00-0.029) 10/22/21 23:44 Results - Labs CBC & Chem 7: 10/24/21 06:27 10/24/21 06:27 Labs: Laboratory Last Values WBC 10.1 K/mm3 (4.5-11.0) 10/24/21 06: RBC 3.39 M/mm3 (3.65-5.03) L 10/24/21 06: Hgb 11.7 gm/dl (11.8-15.2) L 10/24/21 06: Hct 34.3 % (35.5-45.6) L 10/24/21 06: MCV 101 fl (84-94) H 10/24/21 06: MCH 35 pg (28-32) H 10/24/21 06: MCHC 34 % (32-34) 10/24/21 06: RDW 13.5 % (13.2-15.2) 10/24/21 06: Plt Count 541 K/mm3 (140-440) H 10/24/21 06: Lymph % (Auto) 13.8 % (13.4-35.0) 10/24/21 06: [place] % (Auto) 6.0 % (0.0-7.3) 10/24/21 06: Eos % (Auto) 1.9 % (0.0-4.3) 10/24/21 06: Baso % (Auto) 0.6 % (0.0-1.8) 10/24/21 06: Lymph # (Auto) 1.4 K/mm3 (1.2-5.4) 10/24/21 06: [place] # (Auto) 0.6 K/mm3 (0.0-0.8) 10/24/21 06: Eos # (Auto) 0.2 K/mm3 (0.0-0.4) 10/24/21 06: Baso # (Auto) 0.1 K/mm3 (0.0-0.1) 10/24/21 06:27 Seg Neutrophils % 77.7 % (40.0-70.0) H 10/24/21 06:27 Seg Neutrophils # 7.8 K/mm3 (1.8-7.7) H 10/24/21 06:27 Sodium 138 mmol/L (137-145) 10/24/21 06:27 Potassium 4.1 mmol/L (3.6-5.0) 10/24/21 06:27 Chloride 104.7 mmol/L (98-107) 10/24/21 06:27 Carbon Dioxide 26 mmol/L (22-30) 10/24/21 06:27 Anion Gap 11 mmol/L 10/24/21 06:27 BUN 11 mg/dL (9-20) 10/24/21 06:27 Creatinine 0.6 mg/dL (0.8-1.3) L 10/24/21 06:27 Estimated GFR > 60 ml/min 10/24/21 06:27 BUN/Creatinine Ratio 18 % 10/24/21 06:27 Glucose 94 mg/dL (75-100) 10/24/21 06:27 Calcium 8.7 mg/dL (8.4-10.2) 10/24/21 06:27 Total Bilirubin 0.30 mg/dL (0.1-1.2) 10/22/21 23:44 AST 19 units/L (5-40) 10/22/21 23:44 ALT 14 units/L (7-56) 10/22/21 23:44 Alkaline Phosphatase 40 units/L (35-129) 10/22/21 23:44 Troponin T < 0.010 ng/mL (0.00-0.029) 10/22/21 23:44 Total Protein 6.6 g/dL (6.3-8.2) 10/22/21 23:44 Albumin 2.8 g/dL (3.9-5) L 10/22/21 23:44 Albumin/Globulin Ratio 0.7 % 10/22/21 23:44 Urine Color Yellow (Yellow) 10/23/21 09:00 Urine Turbidity Clear (Clear) 10/23/21 09:00 Urine pH 7.0 (5.0-7.0) 10/23/21 09:00 Ur Specific [place] 1.041 (1.003-1.030) H 10/23/21 09:00 Urine Protein 30 mg/dl mg/dL (Negative) 10/23/21 09:00 Urine Glucose (UA) 50 mg/dL (Negative) 10/23/21 09:00 Urine Ketones Neg mg/dL (Negative) 10/23/21 09:00 Urine Blood Neg (Negative) 10/23/21 09:00 Urine Nitrite Neg (Negative) 10/23/21 09:00 Urine Bilirubin Neg (Negative) 10/23/21 09:00 Urine Urobilinogen < 2.0 mg/dL (<2.0) 10/23/21 09:00 Ur Leukocyte Esterase Neg (Negative) 10/23/21 09:00 Urine WBC (Auto) < 1.0 /HPF (0.0-6.0) 10/23/21 09:00 Urine RBC (Auto) 1.0 /HPF (0.0-6.0) 10/23/21 09:00 U Epithel Cells (Auto) < 1.0 /HPF (0-13.0) 10/23/21 09:00 Urine Mucus Few /HPF 10/23/21 09:00 Urine Opiates Screen Negative 10/23/21 09:00 Urine Methadone Screen Negative 10/23/21 09:00 Ur Barbiturates Screen Negative 10/23/21 09:00 Ur Phencyclidine Scrn Negative 10/23/21 09:00 Ur Amphetamines Screen Negative 10/23/21 09:00 U Benzodiazepines Scrn Negative 10/23/21 09:00 Urine Cocaine Screen Negative 10/23/21 09:00 U Marijuana (THC) Screen Positive 10/23/21 09:00 Drugs of Abuse Note Disclamer 10/23/21 09:00 HIV 1&2 Antibody Rapid Non react (Non React) 10/24/21 00:48 HIV P24 Antigen Non react (Non React) 10/24/21 00:48 Microbiology: Microbiology 10/22/21 23:44 Peripheral/Venous Blood Culture - Preliminary NO GROWTH AFTER 48 HOURS 10/23/21 00:31 Peripheral/Venous Blood Culture - Preliminary NO GROWTH AFTER 48 HOURS 10/24/21 05:30 Sputum - Expectorated Sputum Sputum Culture - Final Real/IV: Voiding Method Toilet Active Medications - Current Medications Current Medications: Generic Name Dose Route Start Last Admin Trade Name Freq PRN Reason Stop Dose Admin Acetaminophen 650 mg 10/23/21 03:21 Acetaminophen 325 Mg Tab PO Q4H PRN Pain MILD(1-3)/Fever >100.5/[place] Hydrocodone Bitart/Acetaminophen 2 each 10/23/21 03:21 Hydrocodone/Acetaminophen 5-325 Mg Tab PO Q6H PRN Pain, Moderate (4-6) Guaifenesin 10 ml 10/24/21 19:29 10/25/21 01:01 Guaifenesin Dm 200/20 Mg Oral Liqd 10 Ml PO 10 ml Q4H PRN Administration Cough Heparin Sodium (Porcine) 5,000 unit 10/23/21 06:00 10/25/21 05:09 Heparin 5,000 Unit/1 Ml Vial SUB-Q 5,000 unit Q8HR KACEY Administration Sodium Chloride 1,000 mls @ 75 mls/hr 10/23/21 04:30 10/23/21 06:40 Nacl 0.9% 1000 Ml IV 75 mls/hr DIRECT KACEY Administration Cefepime HCl 2 gm in 100 mls @ 200 mls/hr 10/23/21 06:00 10/25/21 05:10 Cefepime/Ns 2 Gm/100 Ml IV 200 mls/hr Q8H KACEY Administration Protocol Vancomycin HCl 1 gm in 250 mls @ 250 mls/hr 10/23/21 15:00 10/25/21 00:53 Vancomycin/Ns 1 Gm/250 Ml IV 250 mls/hr Q8H KACEY Administration Magnesium Hydroxide 30 ml 10/23/21 04:19 Magnesium Hydroxide (Mom) Oral Liqd Udc PO Q4H PRN Constipation Metronidazole 500 mg 10/24/21 22:00 10/25/21 05:09 Metronidazole 500 Mg Tab PO 500 mg Q8HR KACEY Administration Protocol Morphine Sulfate 4 mg 10/23/21 03:21 Morphine 4 Mg/1 Ml Inj IV Q4H PRN Pain , Severe (7-10) Morphine Sulfate 2 mg 10/23/21 04:19 Morphine 2 Mg/1 Ml Inj IV Q4H PRN Pain, Moderate (4-6) Ondansetron HCl 4 mg 10/23/21 03:21 Ondansetron 4 Mg/2 Ml Inj IV Q8H PRN Nausea And Vomiting Sodium Chloride 10 ml 10/23/21 03:21 Sodium Chloride 0.9% 10 Ml Flush Syringe IV PRN PRN LINE FLUSH Sodium Chloride 10 ml 10/23/21 10:00 10/24/21 21:43 Sodium Chloride 0.9% 10 Ml Flush Syringe IV 10 ml BID KACEY Administration
[2021-10-25] MEDS: HYDROcodone/ACETAMINOPHEN 5-325 MG TAB PO PRN ×2 (11:08→22:55)
[2021-10-25] MEDS: SODIUM CHLORIDE 0.9% 1000 ML 1,000 ML IV SCH (11:11)
--- NOTE | 2021-10-25 11:18 | Progress Note ---
Assessment and Plan 40 y/o male with RUL abnormal airspace disease. Pulm/ID-RUL cavitary lesion vs abscess. Most likely infection in origin given age and social history. 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 Will continue to follow. Subjective Date of service: 10/25/21 Interval history: no acute events. Reviewed ID note from yesterday. Objective Vital Signs - 12hr 10/25/21 10/25/21 10/25/21 00:58 01:11 02:18 Temperature 98.6 F 98.4 F Pulse Rate 67 65 Respiratory 16 16 Rate Blood Pressure 107/66 Blood Pressure 107/66 [Left] O2 Sat by Pulse 97 97 99 Oximetry Constitutional: no acute distress, alert Eyes: non-icteric Neck: supple Effort: normal Ascultation: Bilateral: clear Cardiovascular: regular rate and rhythm (no mrg) Gastrointestinal: normoactive bowel sounds, soft, non-tender, non-distended Integumentary: normal Extremities: no cyanosis, no edema, pink and warm Neurologic: normal mental status, non-focal exam, pupils equal and round Psychiatric: mood appropriate, affect normal CBC and BMP: 10/24/21 06:27 10/24/21 06:27 Abnormal lab findings: Abnormal Labs 10/22/21 10/22/21 10/23/21 23:44 23:44 09:00 RBC 3.21 L Hgb 11.5 L Hct 31.8 L MCV 99 H MCH 36 H MCHC 36 H Plt Count 442 H [place] % (Auto) 8.6 H Seg Neutrophils % 75.7 H Seg Neutrophils # BUN 6 L Creatinine 0.6 L Glucose 107 H Albumin 2.8 L Ur Specific [place] 1.041 H 10/24/21 10/24/21 06:27 06:27 RBC 3.39 L Hgb 11.7 L Hct 34.3 L MCV 101 H MCH 35 H MCHC Plt Count 541 H [place] % (Auto) Seg Neutrophils % 77.7 H Seg Neutrophils # 7.8 H BUN Creatinine 0.6 L Glucose Albumin Ur Specific [place]
--- NOTE | 2021-10-25 17:01 | Progress Note ---
Assessment and Plan Cultures: Blood culture no growth so far Sputum culture contaminated A/P: 40-year-old man no past medical history now with: #Cavitary pneumonia: Likely pulmonary abscess given his history of substance abuse and likely related to his aspiration which is typically Klebsiella in nature. Awaiting AFB rule out Mycobacterium. #Polysubstance abuse Recs: -Check procalcitonin -Check Aspergillus antigen -Ordered MRSA PCR, if negative stop vancomycin -Continue cefepime for now -Add metronidazole -Follow-up AFB cultures Thank you for the consult, we will continue to follow. Burak Dickerson MD [facility] ([facility]) O: [phone] F: [phone] Subjective Date of service: 10/25/21 Interval history: Afebrile, normal white count. Cultures remain negative. Objective - Exam Narrative Exam: Physical Exam: Constitutional: Alert, cooperative. No acute distress Head, Ears, Nose: Normocephalic, atraumatic. External ears, nose normal Eyes: Conjunctivae/corneas clear. No icterus. No ptosis. Neck: Supple, no meningeal signs Oral: dentition fair, no thrush Cardiovascular: S1, S2 normal. Respiratory: Good air entry, clear to auscultation bilaterally GI: Soft, non-tender; bowel sounds normal. No peritoneal signs. Musculoskeletal: No pedal edema, no cyanosis. Skin: No rash or abscess Hem/Lymphatic: No palpable cervical or supraclavicular nodes. No lymphangitis Psych: Mood ok. Affect normal Neurological: Awake, alert, oriented. No gross abnormality - Constitutional Vitals: Vital Signs Temp Pulse Resp BP Pulse Ox 98.8 F 70 18 101/54 98 10/25/21 11:39 10/25/21 11:39 10/25/21 11:39 10/25/21 11:39 10/25/21 11:39 Temperature -Last 24 Hours Temperature 98.8 F Temperature 98.4 F Temperature 98.6 F - Labs CBC & Chem 7: 10/24/21 06:27 10/24/21 06:27
[2021-10-25] MEDS: PHENYTOIN 100 MG CAPSULE.ER PO SCH (21:49)
[2021-10-26] MEDS: VANCOMYCIN/NS 1 GM/250 ML 1 GM/250 ML BAG IV SCH ×3 (01:51→17:30)
[2021-10-26] MEDS: SODIUM CHLORIDE 0.9% 1000 ML 1,000 ML IV SCH ×2 (01:52→15:33)
[2021-10-26] MEDS: metroNIDAZOLE 500 MG TAB PO SCH ×3 (05:49→21:13)
[2021-10-26] MEDS: HEPARIN 5,000 UNIT/1 ML VIAL SUB-Q SCH ×3 (05:49→21:14)
[2021-10-26] MEDS: CEFEPIME/NS 2 GM/100 ML 2 GM/100 ML BAG IV SCH ×3 (05:49→21:13)
--- NOTE | 2021-10-26 09:12 | XRay Report ---
CHEST 1 VIEW 10/26/2021 7:40 AM INDICATION / CLINICAL INFORMATION: Follow-up/cavitary pneumonia. COMPARISON: 10/22/21. FINDINGS: SUPPORT DEVICES: None. HEART / MEDIASTINUM: The heart size and pulmonary vasculature are normal. LUNGS / PLEURA: Localized right upper lobe consolidation is again identified and appears more homogen eous and slightly increased overall compared to the prior study. I do not identify an air-fluid level ,, however this may be related to differences in technique with supine positioning. The lungs are oth erwise clear. No pleural effusion. No pneumothorax. ADDITIONAL FINDINGS: No significant additional findings. IMPRESSION: Right upper lobe pneumonia may be minimally increased. Air-fluid level not seen, probably related to supine positioning. Signer Name: Jose Huerta MD Signed: 10/26/2021 9:08 AM Workstation Name: [id number]
[2021-10-26] MEDS: guaiFENesin DM 200/20 MG ORAL LIQD 10 ML PO PRN ×4 (09:14→21:15)
--- NOTE | 2021-10-26 09:14 | Progress Note ---
Assessment and Plan Assessment and plan: ID evaluation and recommendations noted and appreciated --RUL cavitary/necrotizing pneumonia, r/o TB Continue empiric antibiotics, Follow cultures Pulmonary evaluation noted and appreciated TB testing is in progress Continue oxygen titrate O2 sats to more than 90% Sputum cultures, AFB smears -- Polysubstance abuse; Strongly advised to quit recreational drug use Continue supportive care -- Chronic nicotine dependence, cigarettes Smoking cessation counseling done, risks and consequences and Sequelae of chronic tobacco use discussed in detail with the patient Answered all his questions, verbalized understanding Spent total 17 minutes --Severe protein calorie malnutrition; Nutrition supplements and supportive care Nutrition consult --Normocytic anemia; Probably secondary to underlying disease process Closely monitor H&H and transfuse as needed -- DVT prophylaxis; Subcu heparin Closely monitor the patient and adjust the management as needed Plan of care reviewed with the patient and his nurse Consults and recommendations noted and appreciated Closely monitor the patient and adjust management as needed Vital signs reviewed HIV test negative 10/25; ID evaluation recommendation noted and appreciated Extensive work-up is in progress, continue airborne isolation Funes PCR negative Follow AFB smears AFB cultures Gold interferon test reports 10/26; follow pending reports AFB studies gold interferon test ID and pulmonary following History Interval history: I have seen and examined the patient in the isolation room Patient's chart and medications reviewed Cavitary lesion right upper lobe work-up is in progress Patient feels slightly better complains of some cough Vital signs noted Hospitalist Physical - Constitutional Vitals: Temp Pulse Resp BP Pulse Ox 99.0 F 79 18 122/70 97 10/25/21 20:58 10/25/21 20:58 10/25/21 20:58 10/25/21 20:58 10/26/21 05:02 General appearance: Present: no acute distress, well-nourished - EENT Eyes: Present: PERRL, EOM intact - Neck Neck: Present: supple - Respiratory Respiratory: bilateral: CTA, negative: diminished, rales, rhonchi - Cardiovascular Rhythm: regular Heart Sounds: Present: S1 & S2 - Extremities Extremities: no ischemia, No edema - Abdominal General gastrointestinal: soft, non-tender, non-distended, normal bowel sounds - Integumentary Integumentary: Present: clear, warm - Psychiatric Psychiatric: appropriate mood/affect, agitated - Neurologic Neurologic: moves all extremities HEART Score - HEART Score Troponin: Troponin T < 0.010 ng/mL (0.00-0.029) 10/22/21 23:44 Results - Labs CBC & Chem 7: 10/24/21 06:27 10/24/21 06:27 Labs: Laboratory Last Values WBC 10.1 K/mm3 (4.5-11.0) 10/24/21 06: RBC 3.39 M/mm3 (3.65-5.03) L 10/24/21 06:27 Hgb 11.7 gm/dl (11.8-15.2) L 10/24/21 06:27 Hct 34.3 % (35.5-45.6) L 10/24/21 06: MCV 101 fl (84-94) H 10/24/21 06: MCH 35 pg (28-32) H 10/24/21 06: MCHC 34 % (32-34) 10/24/21 06: RDW 13.5 % (13.2-15.2) 10/24/21 06: Plt Count 541 K/mm3 (140-440) H 10/24/21 06:27 Lymph % (Auto) 13.8 % (13.4-35.0) 10/24/21 06: [place] % (Auto) 6.0 % (0.0-7.3) 10/24/21 06: Eos % (Auto) 1.9 % (0.0-4.3) 10/24/21 06: Baso % (Auto) 0.6 % (0.0-1.8) 10/24/21 06: Lymph # (Auto) 1.4 K/mm3 (1.2-5.4) 10/24/21 06: [place] # (Auto) 0.6 K/mm3 (0.0-0.8) 10/24/21 06: Eos # (Auto) 0.2 K/mm3 (0.0-0.4) 10/24/21 06: Baso # (Auto) 0.1 K/mm3 (0.0-0.1) 10/24/21 06: Seg Neutrophils % 77.7 % (40.0-70.0) H 10/24/21 06: Seg Neutrophils # 7.8 K/mm3 (1.8-7.7) H 10/24/21 06:27 Sodium 138 mmol/L (137-145) 10/24/21 06:27 Potassium 4.1 mmol/L (3.6-5.0) 10/24/21 06:27 Chloride 104.7 mmol/L (98-107) 10/24/21 06:27 Carbon Dioxide 26 mmol/L (22-30) 10/24/21 06:27 Anion Gap 11 mmol/L 10/24/21 06:27 BUN 11 mg/dL (9-20) 10/24/21 06:27 Creatinine 0.6 mg/dL (0.8-1.3) L 10/24/21 06:27 Estimated GFR > 60 ml/min 10/24/21 06:27 BUN/Creatinine Ratio 18 % 10/24/21 06:27 Glucose 94 mg/dL (75-100) 10/24/21 06:27 POC Glucose 96 mg/dL (70-105) 10/25/21 20:58 Calcium 8.7 mg/dL (8.4-10.2) 10/24/21 06:27 Total Bilirubin 0.30 mg/dL (0.1-1.2) 10/22/21 23:44 AST 19 units/L (5-40) 10/22/21 23:44 ALT 14 units/L (7-56) 10/22/21 23:44 Alkaline Phosphatase 40 units/L (35-129) 10/22/21 23:44 Troponin T < 0.010 ng/mL (0.00-0.029) 10/22/21 23:44 Total Protein 6.6 g/dL (6.3-8.2) 10/22/21 23:44 Albumin 2.8 g/dL (3.9-5) L 10/22/21 23:44 Albumin/Globulin Ratio 0.7 % 10/22/21 23:44 Procalcitonin 0.08 ng/mL (<0.15) 10/25/21 06:10 Urine Color Yellow (Yellow) 10/23/21 09:00 Urine Turbidity Clear (Clear) 10/23/21 09:00 Urine pH 7.0 (5.0-7.0) 10/23/21 09:00 Ur Specific [place] 1.041 (1.003-1.030) H 10/23/21 09:00 Urine Protein 30 mg/dl mg/dL (Negative) 10/23/21 09:00 Urine Glucose (UA) 50 mg/dL (Negative) 10/23/21 09:00 Urine Ketones Neg mg/dL (Negative) 10/23/21 09:00 Urine Blood Neg (Negative) 10/23/21 09:00 Urine Nitrite Neg (Negative) 10/23/21 09:00 Urine Bilirubin Neg (Negative) 10/23/21 09:00 Urine Urobilinogen < 2.0 mg/dL (<2.0) 10/23/21 09:00 Ur Leukocyte Esterase Neg (Negative) 10/23/21 09:00 Urine WBC (Auto) < 1.0 /HPF (0.0-6.0) 10/23/21 09:00 Urine RBC (Auto) 1.0 /HPF (0.0-6.0) 10/23/21 09:00 U Epithel Cells (Auto) < 1.0 /HPF (0-13.0) 10/23/21 09:00 Urine Mucus Few /HPF 10/23/21 09:00 Urine Opiates Screen Negative 10/23/21 09:00 Urine Methadone Screen Negative 10/23/21 09:00 Ur Barbiturates Screen Negative 10/23/21 09:00 Ur Phencyclidine Scrn Negative 10/23/21 09:00 Ur Amphetamines Screen Negative 10/23/21 09:00 U Benzodiazepines Scrn Negative 10/23/21 09:00 Urine Cocaine Screen Negative 10/23/21 09:00 U Marijuana (THC) Screen Positive 10/23/21 09:00 Drugs of Abuse Note Disclamer 10/23/21 09:00 SARS-CoV-2 (PCR) Negative (Negative) 10/25/21 11:31 HIV 1&2 Antibody Rapid Non react (Non React) 10/24/21 00:48 HIV P24 Antigen Non react (Non React) 10/24/21 00:48 Microbiology: Microbiology 10/22/21 23:44 Peripheral/Venous Blood Culture - Preliminary NO GROWTH AFTER 72 HOURS 10/23/21 00:31 Peripheral/Venous Blood Culture - Preliminary NO GROWTH AFTER 72 HOURS Real/IV: Voiding Method Toilet Active Medications - Current Medications Current Medications: Generic Name Dose Route Start Last Admin Trade Name Freq PRN Reason Stop Dose Admin Acetaminophen 650 mg 10/23/21 03:21 Acetaminophen 325 Mg Tab PO Q4H PRN Pain MILD(1-3)/Fever >100.5/[place] Hydrocodone Bitart/Acetaminophen 2 each 10/23/21 03:21 10/25/21 22:55 Hydrocodone/Acetaminophen 5-325 Mg Tab PO 2 each Q6H PRN Administration Pain, Moderate (4-6) Guaifenesin 10 ml 10/24/21 19:29 10/25/21 22:50 Guaifenesin Dm 200/20 Mg Oral Liqd 10 Ml PO 10 ml Q4H PRN Administration Cough Heparin Sodium (Porcine) 5,000 unit 10/23/21 06:00 10/26/21 05:49 Heparin 5,000 Unit/1 Ml Vial SUB-Q 5,000 unit Q8HR KACEY Administration Sodium Chloride 1,000 mls @ 75 mls/hr 10/23/21 04:30 10/26/21 01:52 Nacl 0.9% 1000 Ml IV 75 mls/hr DIRECT KACEY Administration Cefepime HCl 2 gm in 100 mls @ 200 mls/hr 10/23/21 06:00 10/26/21 05:49 Cefepime/Ns 2 Gm/100 Ml IV 200 mls/hr Q8H KACEY Administration Protocol Vancomycin HCl 1 gm in 250 mls @ 250 mls/hr 10/25/21 18:00 10/26/21 08:49 Vancomycin/Ns 1 Gm/250 Ml IV Infused Q8H KACEY Infusion Magnesium Hydroxide 30 ml 10/23/21 04:19 Magnesium Hydroxide (Mom) Oral Liqd Udc PO Q4H PRN Constipation Metronidazole 500 mg 10/24/21 22:00 10/26/21 05:49 Metronidazole 500 Mg Tab PO 500 mg Q8HR KACEY Administration Protocol Morphine Sulfate 4 mg 10/23/21 03:21 Morphine 4 Mg/1 Ml Inj IV Q4H PRN Pain , Severe (7-10) Morphine Sulfate 2 mg 10/23/21 04:19 Morphine 2 Mg/1 Ml Inj IV Q4H PRN Pain, Moderate (4-6) Ondansetron HCl 4 mg 10/23/21 03:21 Ondansetron 4 Mg/2 Ml Inj IV Q8H PRN Nausea And Vomiting Phenytoin 300 mg 10/25/21 22:00 10/25/21 21:49 Phenytoin 100 Mg Capsule.Er PO 300 mg QHS KACEY Administration Sodium Chloride 10 ml 10/23/21 03:21 Sodium Chloride 0.9% 10 Ml Flush Syringe IV PRN PRN LINE FLUSH Sodium Chloride 10 ml 10/23/21 10:00 10/25/21 21:50 Sodium Chloride 0.9% 10 Ml Flush Syringe IV 10 ml BID KACEY Administration
--- NOTE | 2021-10-26 12:38 | Progress Note ---
Assessment and Plan 40 y/o male with RUL abnormal airspace disease. 10/26/21: No new recs. Will continue to follow. Pulm/ID-RUL cavitary lesion vs abscess. Most likely infection in origin given age and social history. 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 Will continue to follow. Subjective Date of service: 10/26/21 Interval history: COVID negative. Sputum was unacceptable. No labs today. still on abx. Objective Vital Signs - 12hr 10/26/21 05:02 O2 Sat by Pulse 97 Oximetry Constitutional: no acute distress, alert Eyes: non-icteric Neck: supple Effort: normal Ascultation: Bilateral: clear Cardiovascular: regular rate and rhythm (no mrg) Gastrointestinal: normoactive bowel sounds, soft, non-tender, non-distended Integumentary: normal Extremities: no cyanosis, no edema, pink and warm Neurologic: normal mental status, non-focal exam, pupils equal and round Psychiatric: mood appropriate, affect normal CBC and BMP: 10/24/21 06:27 10/24/21 06:27 Abnormal lab findings: Abnormal Labs 10/22/21 10/22/21 10/23/21 23:44 23:44 09:00 RBC 3.21 L Hgb 11.5 L Hct 31.8 L MCV 99 H MCH 36 H MCHC 36 H Plt Count 442 H [place] % (Auto) 8.6 H Seg Neutrophils % 75.7 H Seg Neutrophils # BUN 6 L Creatinine 0.6 L Glucose 107 H Albumin 2.8 L Ur Specific [place] 1.041 H 10/24/21 10/24/21 06:27 06:27 RBC 3.39 L Hgb 11.7 L Hct 34.3 L MCV 101 H MCH 35 H MCHC Plt Count 541 H [place] % (Auto) Seg Neutrophils % 77.7 H Seg Neutrophils # 7.8 H BUN Creatinine 0.6 L Glucose Albumin Ur Specific [place]
[2021-10-26] MEDS: diphenhydrAMINE 50 MG/ML VIAL IV PRN (15:33)
--- NOTE | 2021-10-26 16:45 | Progress Note ---
Assessment and Plan Cultures: Blood culture no growth so far Sputum culture contaminated HIV negative A/P: 40-year-old man no past medical history now with: #Cavitary pneumonia: Likely pulmonary abscess given his history of substance abuse and likely related to his aspiration which is typically Klebsiella in nature. Awaiting AFB rule out Mycobacterium. #Polysubstance abuse Recs: -Check Aspergillus antigen -Ordered MRSA PCR, if negative stop vancomycin -Continue cefepime for now -Add metronidazole -Follow-up AFB cultures -Could try long erm Abx, though if not improving prior to DC would recommend bronch with good cultures Thank you for the consult, we will continue to follow. Burak Dickerson MD [facility] ([facility]) O: [phone] F: [phone] Subjective Date of service: 10/26/21 Interval history: Afebrile, normal white count. Chest x-ray: Possibly increasing right upper lobe pneumonia Objective - Exam Narrative Exam: Physical Exam: Constitutional: Alert, cooperative. No acute distress Head, Ears, Nose: Normocephalic, atraumatic. External ears, nose normal Eyes: Conjunctivae/corneas clear. No icterus. No ptosis. Neck: Supple, no meningeal signs Oral: dentition fair, no thrush Cardiovascular: S1, S2 normal. Respiratory: Good air entry, clear to auscultation bilaterally GI: Soft, non-tender; bowel sounds normal. No peritoneal signs. Musculoskeletal: No pedal edema, no cyanosis. Skin: No rash or abscess Hem/Lymphatic: No palpable cervical or supraclavicular nodes. No lymphangitis Psych: Mood ok. Affect normal Neurological: Awake, alert, oriented. No gross abnormality - Constitutional Vitals: Vital Signs Temp Pulse Resp BP Pulse Ox 99.0 F 79 16 122/70 96 10/25/21 20:58 10/25/21 20:58 10/26/21 15:26 10/25/21 20:58 10/26/21 15:26 Temperature -Last 24 Hours Temperature 99.0 F - Labs CBC & Chem 7: 10/24/21 06:27 10/24/21 06:27
--- NOTE | 2021-10-26 20:31 | Progress Note ---
Assessment and Plan Assessment and plan: ID evaluation and recommendations noted and appreciated --RUL cavitary/necrotizing pneumonia, r/o TB Continue empiric antibiotics, Follow cultures Pulmonary evaluation noted and appreciated TB testing is in progress Continue oxygen titrate O2 sats to more than 90% Sputum cultures, AFB smears -- Polysubstance abuse; Strongly advised to quit recreational drug use Continue supportive care -- Chronic nicotine dependence, cigarettes Smoking cessation counseling done, risks and consequences and Sequelae of chronic tobacco use discussed in detail with the patient Answered all his questions, verbalized understanding Spent total 17 minutes --Severe protein calorie malnutrition; Nutrition supplements and supportive care Nutrition consult --Normocytic anemia; Probably secondary to underlying disease process Closely monitor H&H and transfuse as needed -- DVT prophylaxis; Subcu heparin Closely monitor the patient and adjust the management as needed Plan of care reviewed with the patient and his nurse Consults and recommendations noted and appreciated Closely monitor the patient and adjust management as needed Vital signs reviewed HIV test negative 10/25; ID evaluation recommendation noted and appreciated Extensive work-up is in progress, continue airborne isolation Funes PCR negative Follow AFB smears AFB cultures Gold interferon test reports 10/26; follow pending reports AFB studies gold interferon test ID and pulmonary following 10/27; continue current management, pulmonary ID evaluation and recommendations noted Extensive evaluation reports pending History Interval history: I have seen and examined the patient at the bedside Patient's chart and medications reviewed Patient is restless wants to go home, wants to know the test reports Patient has mild cough Vital signs reviewed Hospitalist Physical - Constitutional Vitals: Temp Pulse Resp BP Pulse Ox 99.0 F 79 16 122/70 96 10/25/21 20:58 10/25/21 20:58 10/26/21 15:26 10/25/21 20:58 10/26/21 15:26 General appearance: Present: no acute distress, well-nourished - EENT Eyes: Present: PERRL, EOM intact - Neck Neck: Present: supple, normal ROM - Respiratory Respiratory effort: normal Respiratory: bilateral: diminished, negative: rales, rhonchi, wheezing - Cardiovascular Rhythm: regular Heart Sounds: Present: S1 & S2 - Extremities Extremities: no ischemia, No edema - Abdominal General gastrointestinal: soft, non-tender, non-distended, normal bowel sounds - Integumentary Integumentary: Present: clear, warm - Psychiatric Psychiatric: appropriate mood/affect, cooperative - Neurologic Neurologic: moves all extremities HEART Score - HEART Score Troponin: Troponin T < 0.010 ng/mL (0.00-0.029) 10/22/21 23:44 Results - Labs CBC & Chem 7: 10/24/21 06:27 10/27/21 09:46 Labs: Laboratory Last Values WBC 10.1 K/mm3 (4.5-11.0) 10/24/21 06:27 RBC 3.39 M/mm3 (3.65-5.03) L 10/24/21 06:27 Hgb 11.7 gm/dl (11.8-15.2) L 10/24/21 06: Hct 34.3 % (35.5-45.6) L 10/24/21 06: MCV 101 fl (84-94) H 10/24/21 06: MCH 35 pg (28-32) H 10/24/21 06: MCHC 34 % (32-34) 10/24/21 06:27 RDW 13.5 % (13.2-15.2) 10/24/21 06:27 Plt Count 541 K/mm3 (140-440) H 10/24/21 06:27 Lymph % (Auto) 13.8 % (13.4-35.0) 10/24/21 06: [place] % (Auto) 6.0 % (0.0-7.3) 10/24/21 06: Eos % (Auto) 1.9 % (0.0-4.3) 10/24/21 06: Baso % (Auto) 0.6 % (0.0-1.8) 10/24/21 06:27 Lymph # (Auto) 1.4 K/mm3 (1.2-5.4) 10/24/21 06:27 [place] # (Auto) 0.6 K/mm3 (0.0-0.8) 10/24/21 06: Eos # (Auto) 0.2 K/mm3 (0.0-0.4) 10/24/21 06:27 Baso # (Auto) 0.1 K/mm3 (0.0-0.1) 10/24/21 06:27 Seg Neutrophils % 77.7 % (40.0-70.0) H 10/24/21 06:27 Seg Neutrophils # 7.8 K/mm3 (1.8-7.7) H 10/24/21 06:27 Sodium 138 mmol/L (137-145) 10/24/21 06:27 Potassium 4.1 mmol/L (3.6-5.0) 10/24/21 06:27 Chloride 104.7 mmol/L (98-107) 10/24/21 06:27 Carbon Dioxide 26 mmol/L (22-30) 10/24/21 06:27 Anion Gap 11 mmol/L 10/24/21 06:27 BUN 11 mg/dL (9-20) 10/24/21 06:27 Creatinine 0.6 mg/dL (0.8-1.3) L 10/24/21 06:27 Estimated GFR > 60 ml/min 10/24/21 06:27 BUN/Creatinine Ratio 18 % 10/24/21 06:27 Glucose 94 mg/dL (75-100) 10/24/21 06:27 POC Glucose 96 mg/dL (70-105) 10/25/21 20:58 Calcium 8.7 mg/dL (8.4-10.2) 10/24/21 06:27 Total Bilirubin 0.30 mg/dL (0.1-1.2) 10/22/21 23:44 AST 19 units/L (5-40) 10/22/21 23:44 ALT 14 units/L (7-56) 10/22/21 23:44 Alkaline Phosphatase 40 units/L (35-129) 10/22/21 23:44 Troponin T < 0.010 ng/mL (0.00-0.029) 10/22/21 23:44 Total Protein 6.6 g/dL (6.3-8.2) 10/22/21 23:44 Albumin 2.8 g/dL (3.9-5) L 10/22/21 23:44 Albumin/Globulin Ratio 0.7 % 10/22/21 23:44 Procalcitonin 0.08 ng/mL (<0.15) 10/25/21 06:10 Urine Color Yellow (Yellow) 10/23/21 09:00 Urine Turbidity Clear (Clear) 10/23/21 09:00 Urine pH 7.0 (5.0-7.0) 10/23/21 09:00 Ur Specific [place] 1.041 (1.003-1.030) H 10/23/21 09:00 Urine Protein 30 mg/dl mg/dL (Negative) 10/23/21 09:00 Urine Glucose (UA) 50 mg/dL (Negative) 10/23/21 09:00 Urine Ketones Neg mg/dL (Negative) 10/23/21 09:00 Urine Blood Neg (Negative) 10/23/21 09:00 Urine Nitrite Neg (Negative) 10/23/21 09:00 Urine Bilirubin Neg (Negative) 10/23/21 09:00 Urine Urobilinogen < 2.0 mg/dL (<2.0) 10/23/21 09:00 Ur Leukocyte Esterase Neg (Negative) 10/23/21 09:00 Urine WBC (Auto) < 1.0 /HPF (0.0-6.0) 10/23/21 09:00 Urine RBC (Auto) 1.0 /HPF (0.0-6.0) 10/23/21 09:00 U Epithel Cells (Auto) < 1.0 /HPF (0-13.0) 10/23/21 09:00 Urine Mucus Few /HPF 10/23/21 09:00 Urine Opiates Screen Negative 10/23/21 09:00 Urine Methadone Screen Negative 10/23/21 09:00 Ur Barbiturates Screen Negative 10/23/21 09:00 Ur Phencyclidine Scrn Negative 10/23/21 09:00 Ur Amphetamines Screen Negative 10/23/21 09:00 U Benzodiazepines Scrn Negative 10/23/21 09:00 Urine Cocaine Screen Negative 10/23/21 09:00 U Marijuana (THC) Screen Positive 10/23/21 09:00 Drugs of Abuse Note Disclamer 10/23/21 09:00 SARS-CoV-2 (PCR) Negative (Negative) 10/25/21 11:31 HIV 1&2 Antibody Rapid Non react (Non React) 10/24/21 00:48 HIV P24 Antigen Non react (Non React) 10/24/21 00:48 Microbiology: Microbiology 10/22/21 23:44 Peripheral/Venous Blood Culture - Preliminary NO GROWTH AFTER 72 HOURS 10/23/21 00:31 Peripheral/Venous Blood Culture - Preliminary NO GROWTH AFTER 72 HOURS Real/IV: Voiding Method Toilet Active Medications - Current Medications Current Medications: Generic Name Dose Route Start Last Admin Trade Name Freq PRN Reason Stop Dose Admin Acetaminophen 650 mg 10/23/21 03:21 Acetaminophen 325 Mg Tab PO Q4H PRN Pain MILD(1-3)/Fever >100.5/GARDNER Hydrocodone Bitart/Acetaminophen 2 each 10/23/21 03:21 10/25/21 22:55 Hydrocodone/Acetaminophen 5-325 Mg Tab PO 2 each Q6H PRN Administration Pain, Moderate (4-6) Diphenhydramine HCl 25 mg 10/26/21 15:21 10/26/21 15:33 Diphenhydramine 50 Mg/Ml Vial IV 25 mg Q6H PRN Administration Itching Guaifenesin 10 ml 10/24/21 19:29 10/26/21 17:30 Guaifenesin Dm 200/20 Mg Oral Liqd 10 Ml PO 10 ml Q4H PRN Administration Cough Heparin Sodium (Porcine) 5,000 unit 10/23/21 06:00 10/26/21 14:32 Heparin 5,000 Unit/1 Ml Vial SUB-Q 5,000 unit Q8HR KACEY Administration Sodium Chloride 1,000 mls @ 75 mls/hr 10/23/21 04:30 10/26/21 15:33 Nacl 0.9% 1000 Ml IV 75 mls/hr DIRECT KACEY Administration Cefepime HCl 2 gm in 100 mls @ 200 mls/hr 10/23/21 06:00 10/26/21 15:22 Cefepime/Ns 2 Gm/100 Ml IV Infused Q8H KACEY Infusion Protocol Vancomycin HCl 1 gm in 250 mls @ 250 mls/hr 10/25/21 18:00 10/26/21 17:30 Vancomycin/Ns 1 Gm/250 Ml IV 250 mls/hr Q8H KACEY Administration Magnesium Hydroxide 30 ml 10/23/21 04:19 Magnesium Hydroxide (Mom) Oral Liqd Udc PO Q4H PRN Constipation Metronidazole 500 mg 10/24/21 22:00 10/26/21 14:33 Metronidazole 500 Mg Tab PO 500 mg Q8HR KACEY Administration Protocol Morphine Sulfate 4 mg 10/23/21 03:21 Morphine 4 Mg/1 Ml Inj IV Q4H PRN Pain , Severe (7-10) Morphine Sulfate 2 mg 10/23/21 04:19 Morphine 2 Mg/1 Ml Inj IV Q4H PRN Pain, Moderate (4-6) Ondansetron HCl 4 mg 10/23/21 03:21 Ondansetron 4 Mg/2 Ml Inj IV Q8H PRN Nausea And Vomiting Phenytoin 300 mg 10/25/21 22:00 10/25/21 21:49 Phenytoin 100 Mg Capsule.Er PO 300 mg QHS KACEY Administration Sodium Chloride 10 ml 10/23/21 03:21 Sodium Chloride 0.9% 10 Ml Flush Syringe IV PRN PRN LINE FLUSH Sodium Chloride 10 ml 10/23/21 10:00 10/26/21 09:05 Sodium Chloride 0.9% 10 Ml Flush Syringe IV 10 ml BID KACEY Administration
[2021-10-26] MEDS: PHENYTOIN 100 MG CAPSULE.ER PO SCH (21:12)
[2021-10-27] MEDS: VANCOMYCIN/NS 1 GM/250 ML 1 GM/250 ML BAG IV SCH ×3 (01:30→17:01)
[2021-10-27] MEDS: SODIUM CHLORIDE 0.9% 1000 ML 1,000 ML IV SCH ×2 (05:59→13:39)
[2021-10-27] MEDS: metroNIDAZOLE 500 MG TAB PO SCH ×3 (05:59→21:38)
[2021-10-27] MEDS: CEFEPIME/NS 2 GM/100 ML 2 GM/100 ML BAG IV SCH ×3 (05:59→21:37)
[2021-10-27] MEDS: HEPARIN 5,000 UNIT/1 ML VIAL SUB-Q SCH ×3 (06:04→21:38)
[2021-10-27 10:35] LABS: Blood Urea Nitrogen 6 mg/dL (9-20); Hemolysis Index 34
[2021-10-27] MEDS: diphenhydrAMINE 50 MG/ML VIAL IV PRN ×2 (10:47→21:38)
[2021-10-27] MEDS: guaiFENesin DM 200/20 MG ORAL LIQD 10 ML PO PRN ×3 (10:47→21:38)
[2021-10-27 10:51] LABS: BUN/Creatinine Ratio 10
[2021-10-27] MEDS: PHENYTOIN 100 MG CAPSULE.ER PO SCH (21:38)
[2021-10-28] MEDS: VANCOMYCIN/NS 1 GM/250 ML 1 GM/250 ML BAG IV SCH ×2 (03:00→11:00)
[2021-10-28] MEDS: CEFEPIME/NS 2 GM/100 ML 2 GM/100 ML BAG IV SCH ×4 (06:20→22:38)
[2021-10-28] MEDS: metroNIDAZOLE 500 MG TAB PO SCH ×3 (06:20→22:38)
[2021-10-28] MEDS: HEPARIN 5,000 UNIT/1 ML VIAL SUB-Q SCH ×3 (06:21→22:39)
--- NOTE | 2021-10-28 13:10 | Progress Note ---
Assessment and Plan 40 y/o male with RUL abnormal airspace disease. 10/28/21: No new pulm recs 10/26/21: No new recs. Will continue to follow. Pulm/ID-RUL cavitary lesion vs abscess. Most likely infection in origin given age and social history. 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 Will continue to follow. Subjective Date of service: 10/28/21 Interval history: No acute events. Objective Vital Signs - 12hr 10/28/21 05:03 Temperature 97.9 F Pulse Rate 57 L Respiratory 18 Rate Blood Pressure 104/62 O2 Sat by Pulse 97 Oximetry Constitutional: no acute distress, alert Eyes: non-icteric Neck: supple Effort: normal Ascultation: Bilateral: clear Cardiovascular: regular rate and rhythm (no mrg) Gastrointestinal: normoactive bowel sounds, soft, non-tender, non-distended Integumentary: normal Extremities: no cyanosis, no edema, pink and warm Neurologic: normal mental status, non-focal exam, pupils equal and round Psychiatric: mood appropriate, affect normal CBC and BMP: 10/24/21 06:27 10/27/21 09:46 Abnormal lab findings: Abnormal Labs 10/22/21 10/22/21 10/23/21 23:44 23:44 09:00 RBC 3.21 L Hgb 11.5 L Hct 31.8 L MCV 99 H MCH 36 H MCHC 36 H Plt Count 442 H [place] % (Auto) 8.6 H Seg Neutrophils % 75.7 H Seg Neutrophils # Sodium BUN 6 L Creatinine 0.6 L Glucose 107 H Albumin 2.8 L Ur Specific [place] 1.041 H 10/24/21 10/24/21 10/27/21 06:27 06:27 09:46 RBC 3.39 L Hgb 11.7 L Hct 34.3 L MCV 101 H MCH 35 H MCHC Plt Count 541 H [place] % (Auto) Seg Neutrophils % 77.7 H Seg Neutrophils # 7.8 H Sodium 135 L BUN 6 L Creatinine 0.6 L 0.6 L Glucose 150 H Albumin Ur Specific Echo
--- NOTE | 2021-10-28 16:08 | Progress Note ---
Assessment and Plan Cultures: Blood culture no growth so far Sputum culture contaminated HIV negative A/P: 40-year-old man no past medical history now with: #Cavitary pneumonia: Likely pulmonary abscess given his history of substance abuse and likely related to his aspiration which is typically Klebsiella in nature. Awaiting AFB rule out Mycobacterium. #Polysubstance abuse Recs: -MRSA PCR uncollected. Patient is doing well, doubt MRSA pneumonia. Stopped vancomycin -Continue cefepime for now -Add metronidazole -Follow-up AFB cultures -Could try long erm Abx, though if not improving prior to DC would recommend bronch with good cultures -If sending home with extermination inspector antibiotics would send with Augmentin 875/125mg q12h for 3-4 weeks, follow up in clinic. Thank you for the consult, we will continue to follow. Burak Dickerson MD [facility] ([facility]) O: [phone] F: [phone] Subjective Date of service: 10/28/21 Interval history: Afebrile, normal white count. Objective - Exam Narrative Exam: Physical Exam: Constitutional: Alert, cooperative. No acute distress Head, Ears, Nose: Normocephalic, atraumatic. External ears, nose normal Eyes: Conjunctivae/corneas clear. No icterus. No ptosis. Neck: Supple, no meningeal signs Oral: dentition fair, no thrush Cardiovascular: S1, S2 normal. Respiratory: Good air entry, clear to auscultation bilaterally GI: Soft, non-tender; bowel sounds normal. No peritoneal signs. Musculoskeletal: No pedal edema, no cyanosis. Skin: No rash or abscess Hem/Lymphatic: No palpable cervical or supraclavicular nodes. No lymphangitis Psych: Mood ok. Affect normal Neurological: Awake, alert, oriented. No gross abnormality - Constitutional Vitals: Vital Signs Temp Pulse Resp BP Pulse Ox 98.4 F 71 18 104/54 97 10/28/21 12:16 10/28/21 12:16 10/28/21 12:16 10/28/21 12:16 10/28/21 12:16 Temperature -Last 24 Hours Temperature 98.4 F Temperature 97.9 F Temperature 98.6 F Temperature 99.0 F - Labs CBC & Chem 7: 10/24/21 06:27 10/27/21 09:46
--- NOTE | 2021-10-28 18:32 | Progress Note ---
Assessment and Plan Assessment and plan: ID evaluation and recommendations noted and appreciated --RUL cavitary/necrotizing pneumonia, r/o TB Continue empiric antibiotics, Follow cultures Pulmonary evaluation noted and appreciated TB testing is in progress Continue oxygen titrate O2 sats to more than 90% Sputum cultures, AFB smears -- Polysubstance abuse; Strongly advised to quit recreational drug use Continue supportive care -- Chronic nicotine dependence, cigarettes Smoking cessation counseling done, risks and consequences and Sequelae of chronic tobacco use discussed in detail with the patient Answered all his questions, verbalized understanding Spent total 17 minutes --Severe protein calorie malnutrition; Nutrition supplements and supportive care Nutrition consult --Normocytic anemia; Probably secondary to underlying disease process Closely monitor H&H and transfuse as needed -- DVT prophylaxis; Subcu heparin Closely monitor the patient and adjust the management as needed Plan of care reviewed with the patient and his nurse Consults and recommendations noted and appreciated Closely monitor the patient and adjust management as needed Vital signs reviewed HIV test negative 10/25; ID evaluation recommendation noted and appreciated Extensive work-up is in progress, continue airborne isolation Funes PCR negative Follow AFB smears AFB cultures Gold interferon test reports 10/26; follow pending reports AFB studies gold interferon test ID and pulmonary following 10/27; continue current management, pulmonary ID evaluation and recommendations noted Extensive evaluation reports pending 10/28; AFB test still pending, ID and pulmonary following History Interval history: I have seen and examined the patient Patient's chart and medications reviewed No new events reported by the nursing Patient awaiting AFB smears and cultures Patient is saturating well on room air Mild cough Vital signs noted Hospitalist Physical - Constitutional Vitals: Temp Pulse Resp BP Pulse Ox 98.4 F 71 18 104/54 97 10/28/21 12:16 10/28/21 12:16 10/28/21 12:16 10/28/21 12:16 10/28/21 12:16 General appearance: Present: no acute distress, well-nourished - EENT Eyes: Present: PERRL, EOM intact - Neck Neck: Present: supple, normal ROM - Respiratory Respiratory effort: normal Respiratory: bilateral: diminished, negative: rales, rhonchi, wheezing - Extremities Extremities: no ischemia, pulses intact - Abdominal General gastrointestinal: soft, non-tender - Integumentary Integumentary: Present: clear, warm - Psychiatric Psychiatric: appropriate mood/affect, cooperative - Neurologic Neurologic: CNII-XII intact, moves all extremities HEART Score - HEART Score Troponin: Troponin T < 0.010 ng/mL (0.00-0.029) 10/22/21 23:44 Results - Labs CBC & Chem 7: 10/24/21 06:27 10/27/21 09:46 Labs: Laboratory Last Values WBC 10.1 K/mm3 (4.5-11.0) 10/24/21 06:27 RBC 3.39 M/mm3 (3.65-5.03) L 10/24/21 06:27 Hgb 11.7 gm/dl (11.8-15.2) L 10/24/21 06: Hct 34.3 % (35.5-45.6) L 10/24/21 06: MCV 101 fl (84-94) H 10/24/21 06: MCH 35 pg (28-32) H 10/24/21 06: MCHC 34 % (32-34) 10/24/21 06:27 RDW 13.5 % (13.2-15.2) 10/24/21 06:27 Plt Count 541 K/mm3 (140-440) H 10/24/21 06:27 Lymph % (Auto) 13.8 % (13.4-35.0) 10/24/21 06: [place] % (Auto) 6.0 % (0.0-7.3) 10/24/21 06: Eos % (Auto) 1.9 % (0.0-4.3) 10/24/21 06: Baso % (Auto) 0.6 % (0.0-1.8) 10/24/21 06:27 Lymph # (Auto) 1.4 K/mm3 (1.2-5.4) 10/24/21 06:27 [place] # (Auto) 0.6 K/mm3 (0.0-0.8) 10/24/21 06: Eos # (Auto) 0.2 K/mm3 (0.0-0.4) 10/24/21 06:27 Baso # (Auto) 0.1 K/mm3 (0.0-0.1) 10/24/21 06:27 Seg Neutrophils % 77.7 % (40.0-70.0) H 10/24/21 06:27 Seg Neutrophils # 7.8 K/mm3 (1.8-7.7) H 10/24/21 06:27 Sodium 135 mmol/L (137-145) L 10/27/21 09:46 Potassium 4.2 mmol/L (3.6-5.0) 10/27/21 09:46 Chloride 98.9 mmol/L (98-107) 10/27/21 09:46 Carbon Dioxide 29 mmol/L (22-30) 10/27/21 09:46 Anion Gap 11 mmol/L 10/27/21 09:46 BUN 6 mg/dL (9-20) L 10/27/21 09:46 Creatinine 0.6 mg/dL (0.8-1.3) L 10/27/21 09:46 Estimated GFR > 60 ml/min 10/27/21 09:46 BUN/Creatinine Ratio 10 % 10/27/21 09:46 Glucose 150 mg/dL (75-100) H 10/27/21 09:46 POC Glucose 96 mg/dL (70-105) 10/25/21 20:58 Calcium 9.0 mg/dL (8.4-10.2) 10/27/21 09:46 Total Bilirubin 0.30 mg/dL (0.1-1.2) 10/22/21 23:44 AST 19 units/L (5-40) 10/22/21 23:44 ALT 14 units/L (7-56) 10/22/21 23:44 Alkaline Phosphatase 40 units/L (35-129) 10/22/21 23:44 Troponin T < 0.010 ng/mL (0.00-0.029) 10/22/21 23:44 Total Protein 6.6 g/dL (6.3-8.2) 10/22/21 23:44 Albumin 2.8 g/dL (3.9-5) L 10/22/21 23:44 Albumin/Globulin Ratio 0.7 % 10/22/21 23:44 Procalcitonin 0.08 ng/mL (<0.15) 10/25/21 06:10 Urine Color Yellow (Yellow) 10/23/21 09:00 Urine Turbidity Clear (Clear) 10/23/21 09:00 Urine pH 7.0 (5.0-7.0) 10/23/21 09:00 Ur Specific [place] 1.041 (1.003-1.030) H 10/23/21 09:00 Urine Protein 30 mg/dl mg/dL (Negative) 10/23/21 09:00 Urine Glucose (UA) 50 mg/dL (Negative) 10/23/21 09:00 Urine Ketones Neg mg/dL (Negative) 10/23/21 09:00 Urine Blood Neg (Negative) 10/23/21 09:00 Urine Nitrite Neg (Negative) 10/23/21 09:00 Urine Bilirubin Neg (Negative) 10/23/21 09:00 Urine Urobilinogen < 2.0 mg/dL (<2.0) 10/23/21 09:00 Ur Leukocyte Esterase Neg (Negative) 10/23/21 09:00 Urine WBC (Auto) < 1.0 /HPF (0.0-6.0) 10/23/21 09:00 Urine RBC (Auto) 1.0 /HPF (0.0-6.0) 10/23/21 09:00 U Epithel Cells (Auto) < 1.0 /HPF (0-13.0) 10/23/21 09:00 Urine Mucus Few /HPF 10/23/21 09:00 Nasal Screen MRSA (PCR) Negative (Negative) 10/25/21 08:27 Vancomycin Trough 12.3 ug/mL (5.0-20.0) 10/27/21 09:46 Urine Opiates Screen Negative 10/23/21 09:00 Urine Methadone Screen Negative 10/23/21 09:00 Ur Barbiturates Screen Negative 10/23/21 09:00 Ur Phencyclidine Scrn Negative 10/23/21 09:00 Ur Amphetamines Screen Negative 10/23/21 09:00 U Benzodiazepines Scrn Negative 10/23/21 09:00 Urine Cocaine Screen Negative 10/23/21 09:00 U Marijuana (THC) Screen Positive 10/23/21 09:00 Drugs of Abuse Note Disclamer 10/23/21 09:00 SARS-CoV-2 (PCR) Negative (Negative) 10/25/21 11:31 HIV 1&2 Antibody Rapid Non react (Non React) 10/24/21 00:48 HIV P24 Antigen Non react (Non React) 10/24/21 00:48 Microbiology: Microbiology 10/24/21 05:30 Sputum - Expectorated Sputum Sputum Culture - Final 10/22/21 23:44 Peripheral/Venous Blood Culture - Final NO GROWTH AFTER 5 DAYS 10/23/21 00:31 Peripheral/Venous Blood Culture - Final NO GROWTH AFTER 5 DAYS Real/IV: Voiding Method Toilet Active Medications - Current Medications Current Medications: Generic Name Dose Route Start Last Admin Trade Name Freq PRN Reason Stop Dose Admin Acetaminophen 650 mg 10/23/21 03:21 Acetaminophen 325 Mg Tab PO Q4H PRN Pain MILD(1-3)/Fever >100.5/[place] Hydrocodone Bitart/Acetaminophen 2 each 10/23/21 03:21 10/25/21 22:55 Hydrocodone/Acetaminophen 5-325 Mg Tab PO 2 each Q6H PRN Administration Pain, Moderate (4-6) Diphenhydramine HCl 25 mg 10/28/21 06:24 Diphenhydramine 25 Mg Cap PO Q6H PRN Itching Guaifenesin 10 ml 10/24/21 19:29 10/27/21 21:38 Guaifenesin Dm 200/20 Mg Oral Liqd 10 Ml PO 10 ml Q4H PRN Administration Cough Heparin Sodium (Porcine) 5,000 unit 10/23/21 06:00 10/28/21 18:15 Heparin 5,000 Unit/1 Ml Vial SUB-Q Not Given Q8HR KACEY Sodium Chloride 1,000 mls @ 75 mls/hr 10/23/21 04:30 10/27/21 13:39 Nacl 0.9% 1000 Ml IV 75 mls/hr DIRECT KACEY Administration Cefepime HCl 2 gm in 100 mls @ 200 mls/hr 10/23/21 06:00 10/28/21 18:16 Cefepime/Ns 2 Gm/100 Ml IV 200 mls/hr Q8H KACEY Administration Protocol Magnesium Hydroxide 30 ml 10/23/21 04:19 Magnesium Hydroxide (Mom) Oral Liqd Udc PO Q4H PRN Constipation Metronidazole 500 mg 10/24/21 22:00 10/28/21 18:15 Metronidazole 500 Mg Tab PO 500 mg Q8HR KACEY Administration Protocol Morphine Sulfate 4 mg 10/23/21 03:21 Morphine 4 Mg/1 Ml Inj IV Q4H PRN Pain , Severe (7-10) Morphine Sulfate 2 mg 10/23/21 04:19 Morphine 2 Mg/1 Ml Inj IV Q4H PRN Pain, Moderate (4-6) Ondansetron HCl 4 mg 10/23/21 03:21 Ondansetron 4 Mg/2 Ml Inj IV Q8H PRN Nausea And Vomiting Phenytoin 300 mg 10/25/21 22:00 10/27/21 21:38 Phenytoin 100 Mg Capsule.Er PO 300 mg QHS KACEY Administration Sodium Chloride 10 ml 10/23/21 03:21 Sodium Chloride 0.9% 10 Ml Flush Syringe IV PRN PRN LINE FLUSH Sodium Chloride 10 ml 10/23/21 10:00 10/28/21 18:15 Sodium Chloride 0.9% 10 Ml Flush Syringe IV 10 ml BID KACEY Administration Nutrition/Malnutrition Assess - Dietary Evaluation Nutrition/Malnutrition Findings: Nutrition Notes Start: 10/28/21 16:30 Freq: Status: Active Protocol: Document 10/28/21 16:30 [place] (Rec: 10/28/21 16:50 WESTON [email or web address]) Nutrition Notes Need for Assessment generated from: LOS Initial or Follow up Assessment Current Diagnosis Malnutrition Other Pertinent Diagnosis Cavitary Pneumonia, Polysubstance Abuse, Anemia. Current Diet Regular Diet (since B 10/23). Labs/Tests 10/28: Na 135, BUN 6, Crea 0.6 , Glu 150. Pertinent Medications 10/28: Nutritionally unremarkable. Height 6 ft Weight 65 kg [place] Body Weight (kg) 80.90 BMI 19.4 Intake Prior to Admission Good Weight change and time frame Pt denies having loss body weight [employer]. Weight Status Appropriate Subjective/Other Information RD consult for LOS assessment. Pt's PO intake of meals has been Good (100%), according to ADL notes. Pt is on Room Air, O2 saturation @ 98%, according to Physical Assessment History notes. Percent of energy/protein needs met: Prescribed Regular Diet provides for energy/protein needs (2,289 Kcal/89 g) during LOS. Burn Absent Trauma Absent GI Symptoms None Food Allergy No Skin Integrity/Comment Assessment WNL. Current % PO Good (75-100%) Minimum of two criteria No Fluid Accumulation N/A Reduced Radiology Specialist Strength N/A (non-severe) Protein-Calorie Malnutrition N\A #1 Nutrition Diagnosis No nutrition diagnosis at this time Is patient on ventilator? No Is Patient Ambulatory and/or Out of Bed Yes REE-([place]-St. Jeor-ambulatory/OOB) [ 2069. NUTR.MSJOOB] Kcal/Kg value to use for calculation 35 Approximate Energy Requirements Using 2275 kcal/Kg Calculation Used for Recommendations Kcal/kg Additional Notes Protein: 0.8-1 g/Kg ABW; 52-65 g/day. Fluids: 1 ml/Kcal, or as per MD. Nutrition Intervention Change Diet Order: Continue Regular Diet. Follow-Up By: 11/04/21 Additional Comments Continue monitoring food tolerance, %PO intake of meals , and BM.
[2021-10-28] MEDS: PHENYTOIN 100 MG CAPSULE.ER PO SCH (22:38)
[2021-10-29] MEDS: CEFEPIME/NS 2 GM/100 ML 2 GM/100 ML BAG IV SCH ×3 (05:25→21:53)
[2021-10-29] MEDS: HEPARIN 5,000 UNIT/1 ML VIAL SUB-Q SCH ×3 (05:25→21:54)
[2021-10-29] MEDS: metroNIDAZOLE 500 MG TAB PO SCH ×3 (05:26→21:54)
--- NOTE | 2021-10-29 16:54 | Progress Note ---
Assessment and Plan Assessment and plan: ID evaluation and recommendations noted and appreciated --RUL cavitary/necrotizing pneumonia, Continue empiric antibiotics, Follow cultures Pulmonary evaluation noted and appreciated TB testing is in progress to rule out pulmonary TB Continue oxygen titrate O2 sats to more than 90% Sputum cultures, AFB smears -- Polysubstance abuse; Strongly advised to quit recreational drug use Continue supportive care -- Chronic nicotine dependence, cigarettes Smoking cessation counseling done, risks and consequences and Sequelae of chronic tobacco use discussed in detail with the patient Answered all his questions, verbalized understanding Spent total 17 minutes --Severe protein calorie malnutrition; Nutrition supplements and supportive care Nutrition consult --Normocytic anemia; Probably secondary to underlying disease process Closely monitor H&H and transfuse as needed -- DVT prophylaxis; Subcu heparin Closely monitor the patient and adjust the management as needed Plan of care reviewed with the patient and his nurse Consults and recommendations noted and appreciated Closely monitor the patient and adjust management as needed Vital signs reviewed HIV test negative 10/25; ID evaluation recommendation noted and appreciated Extensive work-up is in progress, continue airborne isolation Funes PCR negative Follow AFB smears AFB cultures Gold interferon test reports 10/26; follow pending reports AFB studies gold interferon test ID and pulmonary following 10/27; continue current management, pulmonary ID evaluation and recommendations noted Extensive evaluation reports pending 10/28; patient anxious to go home, AFB tests are pending reports History Interval history: I have have seen and examined the patient at the bedside Patient in airborne isolation room Work-up of the cavitary lung lesion is in progress Patient is anxious to go home Vital signs noted Hospitalist Physical - Constitutional Vitals: Temp Pulse Resp BP Pulse Ox 98.9 F 75 20 102/61 100 10/29/21 15:51 10/29/21 15:51 10/29/21 15:51 10/29/21 15:51 10/29/21 15:51 General appearance: Present: no acute distress, well-nourished - EENT Eyes: Present: PERRL, EOM intact - Neck Neck: Present: supple, normal ROM - Respiratory Respiratory effort: normal Respiratory: bilateral: diminished, negative: rales, rhonchi, wheezing - Cardiovascular Rhythm: regular Heart Sounds: Present: S1 & S2 - Extremities Extremities: no ischemia, No edema - Abdominal General gastrointestinal: soft, non-tender, non-distended, normal bowel sounds - Integumentary Integumentary: Present: clear, warm - Psychiatric Psychiatric: appropriate mood/affect, cooperative - Neurologic Neurologic: CNII-XII intact, moves all extremities HEART Score - HEART Score Troponin: Troponin T < 0.010 ng/mL (0.00-0.029) 10/22/21 23:44 Results - Labs CBC & Chem 7: 10/24/21 06:27 10/27/21 09:46 Labs: Laboratory Last Values WBC 10.1 K/mm3 (4.5-11.0) 10/24/21 06: RBC 3.39 M/mm3 (3.65-5.03) L 10/24/21 06:27 Hgb 11.7 gm/dl (11.8-15.2) L 10/24/21 06: Hct 34.3 % (35.5-45.6) L 10/24/21 06:27 MCV 101 fl (84-94) H 10/24/21 06:27 MCH 35 pg (28-32) H 10/24/21 06: MCHC 34 % (32-34) 10/24/21 06:27 RDW 13.5 % (13.2-15.2) 10/24/21 06:27 Plt Count 541 K/mm3 (140-440) H 10/24/21 06:27 Lymph % (Auto) 13.8 % (13.4-35.0) 10/24/21 06:27 [place] % (Auto) 6.0 % (0.0-7.3) 10/24/21 06: Eos % (Auto) 1.9 % (0.0-4.3) 10/24/21 06:27 Baso % (Auto) 0.6 % (0.0-1.8) 10/24/21 06:27 Lymph # (Auto) 1.4 K/mm3 (1.2-5.4) 10/24/21 06: [place] # (Auto) 0.6 K/mm3 (0.0-0.8) 10/24/21 06:27 Eos # (Auto) 0.2 K/mm3 (0.0-0.4) 10/24/21 06:27 Baso # (Auto) 0.1 K/mm3 (0.0-0.1) 10/24/21 06:27 Seg Neutrophils % 77.7 % (40.0-70.0) H 10/24/21 06:27 Seg Neutrophils # 7.8 K/mm3 (1.8-7.7) H 10/24/21 06:27 Sodium 135 mmol/L (137-145) L 10/27/21 09:46 Potassium 4.2 mmol/L (3.6-5.0) 10/27/21 09:46 Chloride 98.9 mmol/L (98-107) 10/27/21 09:46 Carbon Dioxide 29 mmol/L (22-30) 10/27/21 09:46 Anion Gap 11 mmol/L 10/27/21 09:46 BUN 6 mg/dL (9-20) L 10/27/21 09:46 Creatinine 0.6 mg/dL (0.8-1.3) L 10/27/21 09:46 Estimated GFR > 60 ml/min 10/27/21 09:46 BUN/Creatinine Ratio 10 % 10/27/21 09:46 Glucose 150 mg/dL (75-100) H 10/27/21 09:46 POC Glucose 96 mg/dL (70-105) 10/25/21 20:58 Calcium 9.0 mg/dL (8.4-10.2) 10/27/21 09:46 Total Bilirubin 0.30 mg/dL (0.1-1.2) 10/22/21 23:44 AST 19 units/L (5-40) 10/22/21 23:44 ALT 14 units/L (7-56) 10/22/21 23:44 Alkaline Phosphatase 40 units/L (35-129) 10/22/21 23:44 Troponin T < 0.010 ng/mL (0.00-0.029) 10/22/21 23:44 Total Protein 6.6 g/dL (6.3-8.2) 10/22/21 23:44 Albumin 2.8 g/dL (3.9-5) L 10/22/21 23:44 Albumin/Globulin Ratio 0.7 % 10/22/21 23:44 Procalcitonin 0.08 ng/mL (<0.15) 10/25/21 06:10 Urine Color Yellow (Yellow) 10/23/21 09:00 Urine Turbidity Clear (Clear) 10/23/21 09:00 Urine pH 7.0 (5.0-7.0) 10/23/21 09:00 Ur Specific [place] 1.041 (1.003-1.030) H 10/23/21 09:00 Urine Protein 30 mg/dl mg/dL (Negative) 10/23/21 09:00 Urine Glucose (UA) 50 mg/dL (Negative) 10/23/21 09:00 Urine Ketones Neg mg/dL (Negative) 10/23/21 09:00 Urine Blood Neg (Negative) 10/23/21 09:00 Urine Nitrite Neg (Negative) 10/23/21 09:00 Urine Bilirubin Neg (Negative) 10/23/21 09:00 Urine Urobilinogen < 2.0 mg/dL (<2.0) 10/23/21 09:00 Ur Leukocyte Esterase Neg (Negative) 10/23/21 09:00 Urine WBC (Auto) < 1.0 /HPF (0.0-6.0) 10/23/21 09:00 Urine RBC (Auto) 1.0 /HPF (0.0-6.0) 10/23/21 09:00 U Epithel Cells (Auto) < 1.0 /HPF (0-13.0) 10/23/21 09:00 Urine Mucus Few /HPF 10/23/21 09:00 Nasal Screen MRSA (PCR) Negative (Negative) 10/25/21 08:27 Vancomycin Trough 12.3 ug/mL (5.0-20.0) 10/27/21 09:46 Urine Opiates Screen Negative 10/23/21 09:00 Urine Methadone Screen Negative 10/23/21 09:00 Ur Barbiturates Screen Negative 10/23/21 09:00 Ur Phencyclidine Scrn Negative 10/23/21 09:00 Ur Amphetamines Screen Negative 10/23/21 09:00 U Benzodiazepines Scrn Negative 10/23/21 09:00 Urine Cocaine Screen Negative 10/23/21 09:00 U Marijuana (THC) Screen Positive 10/23/21 09:00 Drugs of Abuse Note Disclamer 10/23/21 09:00 SARS-CoV-2 (PCR) Negative (Negative) 10/25/21 11:31 HIV 1&2 Antibody Rapid Non react (Non React) 10/24/21 00:48 HIV P24 Antigen Non react (Non React) 10/24/21 00:48 Microbiology: Microbiology 10/24/21 05:30 Sputum - Expectorated Sputum Sputum Culture - Final Real/IV: Voiding Method Toilet Active Medications - Current Medications Current Medications: Generic Name Dose Route Start Last Admin Trade Name Freq PRN Reason Stop Dose Admin Acetaminophen 650 mg 10/23/21 03:21 Acetaminophen 325 Mg Tab PO Q4H PRN Pain MILD(1-3)/Fever >100.5/[place] Hydrocodone Bitart/Acetaminophen 2 each 10/23/21 03:21 10/25/21 22:55 Hydrocodone/Acetaminophen 5-325 Mg Tab PO 2 each Q6H PRN Administration Pain, Moderate (4-6) Diphenhydramine HCl 25 mg 10/28/21 06:24 Diphenhydramine 25 Mg Cap PO Q6H PRN Itching Guaifenesin 10 ml 10/24/21 19:29 10/27/21 21:38 Guaifenesin Dm 200/20 Mg Oral Liqd 10 Ml PO 10 ml Q4H PRN Administration Cough Heparin Sodium (Porcine) 5,000 unit 10/23/21 06:00 10/29/21 13:54 Heparin 5,000 Unit/1 Ml Vial SUB-Q 5,000 unit Q8HR KACEY Administration Sodium Chloride 1,000 mls @ 75 mls/hr 10/23/21 04:30 10/27/21 13:39 Nacl 0.9% 1000 Ml IV 75 mls/hr DIRECT KACEY Administration Cefepime HCl 2 gm in 100 mls @ 200 mls/hr 10/23/21 06:00 10/29/21 13:55 Cefepime/Ns 2 Gm/100 Ml IV 200 mls/hr Q8H KACEY Administration Protocol Magnesium Hydroxide 30 ml 10/23/21 04:19 Magnesium Hydroxide (Mom) Oral Liqd Udc PO Q4H PRN Constipation Metronidazole 500 mg 10/24/21 22:00 10/29/21 13:55 Metronidazole 500 Mg Tab PO 500 mg Q8HR KACEY Administration Protocol Morphine Sulfate 4 mg 10/23/21 03:21 Morphine 4 Mg/1 Ml Inj IV Q4H PRN Pain , Severe (7-10) Morphine Sulfate 2 mg 10/23/21 04:19 Morphine 2 Mg/1 Ml Inj IV Q4H PRN Pain, Moderate (4-6) Ondansetron HCl 4 mg 10/23/21 03:21 Ondansetron 4 Mg/2 Ml Inj IV Q8H PRN Nausea And Vomiting Phenytoin 300 mg 10/25/21 22:00 10/28/21 22:38 Phenytoin 100 Mg Capsule.Er PO 300 mg QHS KACEY Administration Sodium Chloride 10 ml 10/23/21 03:21 Sodium Chloride 0.9% 10 Ml Flush Syringe IV PRN PRN LINE FLUSH Sodium Chloride 10 ml 10/23/21 10:00 10/29/21 13:53 Sodium Chloride 0.9% 10 Ml Flush Syringe IV 10 ml BID KACEY Administration Nutrition/Malnutrition Assess - Dietary Evaluation Nutrition/Malnutrition Findings: Nutrition Notes Start: 10/28/21 16:30 Freq: Status: Active Protocol: Document 10/28/21 16:30 [place] (Rec: 10/28/21 16:50 WESTON [email or web address]) Nutrition Notes Need for Assessment generated from: LOS Initial or Follow up Assessment Current Diagnosis Malnutrition Other Pertinent Diagnosis Cavitary Pneumonia, Polysubstance Abuse, Anemia. Current Diet Regular Diet (since B 10/23). Labs/Tests 10/28: Na 135, BUN 6, Crea 0.6 , Glu 150. Pertinent Medications 10/28: Nutritionally unremarkable. 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 Pt's PO intake of meals has been Good (100%), according to ADL notes. Pt is on Room Air, O2 saturation @ 98%, according to Physical Assessment History notes. Percent of energy/protein needs met: Prescribed Regular Diet provides for energy/protein needs (2,289 Kcal/89 g) during LOS. Burn Absent Trauma Absent GI Symptoms None Food Allergy No Skin Integrity/Comment Assessment WNL. Current % PO Good (75-100%) Minimum of two criteria No Fluid Accumulation N/A Reduced Academic Intern Strength N/A (non-severe) Protein-Calorie Malnutrition N\A #1 Nutrition Diagnosis No nutrition diagnosis at this time Is patient on ventilator? No Is Patient Ambulatory and/or Out of Bed Yes REE-([place]-St. Jeor-ambulatory/OOB) [ 1810.900 NUTR.MSJOOB] Kcal/Kg value to use for calculation 35 Approximate Energy Requirements Using 2275 kcal/Kg Calculation Used for Recommendations Kcal/kg Additional Notes Protein: 0.8-1 g/Kg ABW; 52-65 g/day. Fluids: 1 ml/Kcal, or as per MD. Nutrition Intervention Change Diet Order: Continue Regular Diet. Follow-Up By: 11/04/21 Additional Comments Continue monitoring food tolerance, %PO intake of meals , and BM.
[2021-10-29] MEDS: diphenhydrAMINE 25 MG CAP PO PRN (21:53)
[2021-10-29] MEDS: guaiFENesin DM 200/20 MG ORAL LIQD 10 ML PO PRN (21:53)
[2021-10-29] MEDS: PHENYTOIN 100 MG CAPSULE.ER PO SCH (21:54)
[2021-10-30] MEDS: metroNIDAZOLE 500 MG TAB PO SCH ×3 (05:34→21:48)
[2021-10-30] MEDS: HEPARIN 5,000 UNIT/1 ML VIAL SUB-Q SCH ×3 (05:34→21:49)
[2021-10-30] MEDS: CEFEPIME/NS 2 GM/100 ML 2 GM/100 ML BAG IV SCH ×3 (05:34→22:15)
[2021-10-30] MEDS: SODIUM CHLORIDE 0.9% 1000 ML 1,000 ML IV SCH (05:35)
--- NOTE | 2021-10-30 12:22 | Event Note ---
Date: 10/30/21 Stable on Room air. No plans to bronch at this moment unless needed by ID.
--- NOTE | 2021-10-30 15:54 | Progress Note ---
Assessment and Plan Assessment and plan: ID evaluation and recommendations noted and appreciated --RUL cavitary/necrotizing pneumonia, r/o TB Continue empiric antibiotics, Follow cultures Pulmonary evaluation noted and appreciated TB testing is in progress Continue oxygen titrate O2 sats to more than 90% Sputum cultures, AFB smears -- Polysubstance abuse; Strongly advised to quit recreational drug use Continue supportive care -- Chronic nicotine dependence, cigarettes Smoking cessation counseling done, risks and consequences and Sequelae of chronic tobacco use discussed in detail with the patient Answered all his questions, verbalized understanding Spent total 17 minutes --Severe protein calorie malnutrition; Nutrition supplements and supportive care Nutrition consult --Normocytic anemia; Probably secondary to underlying disease process Closely monitor H&H and transfuse as needed -- DVT prophylaxis; Subcu heparin Closely monitor the patient and adjust the management as needed Plan of care reviewed with the patient and his nurse Consults and recommendations noted and appreciated Closely monitor the patient and adjust management as needed Vital signs reviewed HIV test negative 10/25; ID evaluation recommendation noted and appreciated Extensive work-up is in progress, continue airborne isolation Funes PCR negative Follow AFB smears AFB cultures Gold interferon test reports 10/26; follow pending reports AFB studies gold interferon test ID and pulmonary following 10/27; continue current management, pulmonary ID evaluation and recommendations noted Extensive evaluation reports pending 10/28; patient anxious to go home, AFB tests are pending reports 10/29; patient has mild cough, cough medicine advised Pending AFB culture and smear reports History Interval history: Patient feels slightly better, has mild cough Vital signs reviewed, AFB cultures and smear still pending Pulmonary and ID following Hospitalist Physical - Constitutional Vitals: Temp Pulse Resp BP Pulse Ox 98.0 F 81 16 107/55 97 10/30/21 10:34 10/30/21 10:34 10/30/21 12:49 10/30/21 10:34 10/30/21 12:49 General appearance: Present: no acute distress, well-nourished - EENT Eyes: Present: PERRL, EOM intact - Neck Neck: Present: supple, normal ROM - Respiratory Respiratory effort: normal Respiratory: bilateral: diminished, negative: rales, rhonchi, wheezing - Cardiovascular Rhythm: regular Heart Sounds: Present: S1 & S2 (Patient) - Extremities Extremities: no ischemia, No edema - Abdominal General gastrointestinal: soft, non-tender, non-distended, normal bowel sounds - Integumentary Integumentary: Present: clear, warm - Psychiatric Psychiatric: appropriate mood/affect, cooperative - Neurologic Neurologic: CNII-XII intact, moves all extremities HEART Score - HEART Score Troponin: Troponin T < 0.010 ng/mL (0.00-0.029) 10/22/21 23:44 Results - Labs CBC & Chem 7: 10/24/21 06:27 10/27/21 09:46 Labs: Laboratory Last Values WBC 10.1 K/mm3 (4.5-11.0) 10/24/21 06: RBC 3.39 M/mm3 (3.65-5.03) L 10/24/21 06:27 Hgb 11.7 gm/dl (11.8-15.2) L 10/24/21 06:27 Hct 34.3 % (35.5-45.6) L 10/24/21 06:27 MCV 101 fl (84-94) H 10/24/21 06:27 MCH 35 pg (28-32) H 10/24/21 06:27 MCHC 34 % (32-34) 10/24/21 06:27 RDW 13.5 % (13.2-15.2) 10/24/21 06:27 Plt Count 541 K/mm3 (140-440) H 10/24/21 06:27 Lymph % (Auto) 13.8 % (13.4-35.0) 10/24/21 06:27 [place] % (Auto) 6.0 % (0.0-7.3) 10/24/21 06: Eos % (Auto) 1.9 % (0.0-4.3) 10/24/21 06:27 Baso % (Auto) 0.6 % (0.0-1.8) 10/24/21 06:27 Lymph # (Auto) 1.4 K/mm3 (1.2-5.4) 10/24/21 06:27 [place] # (Auto) 0.6 K/mm3 (0.0-0.8) 10/24/21 06:27 Eos # (Auto) 0.2 K/mm3 (0.0-0.4) 10/24/21 06: Baso # (Auto) 0.1 K/mm3 (0.0-0.1) 10/24/21 06:27 Seg Neutrophils % 77.7 % (40.0-70.0) H 10/24/21 06:27 Seg Neutrophils # 7.8 K/mm3 (1.8-7.7) H 10/24/21 06:27 Sodium 135 mmol/L (137-145) L 10/27/21 09:46 Potassium 4.2 mmol/L (3.6-5.0) 10/27/21 09:46 Chloride 98.9 mmol/L (98-107) 10/27/21 09:46 Carbon Dioxide 29 mmol/L (22-30) 10/27/21 09:46 Anion Gap 11 mmol/L 10/27/21 09:46 BUN 6 mg/dL (9-20) L 10/27/21 09:46 Creatinine 0.6 mg/dL (0.8-1.3) L 10/27/21 09:46 Estimated GFR > 60 ml/min 10/27/21 09:46 BUN/Creatinine Ratio 10 % 10/27/21 09:46 Glucose 150 mg/dL (75-100) H 10/27/21 09:46 POC Glucose 96 mg/dL (70-105) 10/25/21 20:58 Calcium 9.0 mg/dL (8.4-10.2) 10/27/21 09:46 Total Bilirubin 0.30 mg/dL (0.1-1.2) 10/22/21 23:44 AST 19 units/L (5-40) 10/22/21 23:44 ALT 14 units/L (7-56) 10/22/21 23:44 Alkaline Phosphatase 40 units/L (35-129) 10/22/21 23:44 Troponin T < 0.010 ng/mL (0.00-0.029) 10/22/21 23:44 Total Protein 6.6 g/dL (6.3-8.2) 10/22/21 23:44 Albumin 2.8 g/dL (3.9-5) L 10/22/21 23:44 Albumin/Globulin Ratio 0.7 % 10/22/21 23:44 Procalcitonin 0.08 ng/mL (<0.15) 10/25/21 06:10 Urine Color Yellow (Yellow) 10/23/21 09:00 Urine Turbidity Clear (Clear) 10/23/21 09:00 Urine pH 7.0 (5.0-7.0) 10/23/21 09:00 Ur Specific [place] 1.041 (1.003-1.030) H 10/23/21 09:00 Urine Protein 30 mg/dl mg/dL (Negative) 10/23/21 09:00 Urine Glucose (UA) 50 mg/dL (Negative) 10/23/21 09:00 Urine Ketones Neg mg/dL (Negative) 10/23/21 09:00 Urine Blood Neg (Negative) 10/23/21 09:00 Urine Nitrite Neg (Negative) 10/23/21 09:00 Urine Bilirubin Neg (Negative) 10/23/21 09:00 Urine Urobilinogen < 2.0 mg/dL (<2.0) 10/23/21 09:00 Ur Leukocyte Esterase Neg (Negative) 10/23/21 09:00 Urine WBC (Auto) < 1.0 /HPF (0.0-6.0) 10/23/21 09:00 Urine RBC (Auto) 1.0 /HPF (0.0-6.0) 10/23/21 09:00 U Epithel Cells (Auto) < 1.0 /HPF (0-13.0) 10/23/21 09:00 Urine Mucus Few /HPF 10/23/21 09:00 Nasal Screen MRSA (PCR) Negative (Negative) 10/25/21 08:27 Vancomycin Trough 12.3 ug/mL (5.0-20.0) 10/27/21 09:46 Urine Opiates Screen Negative 10/23/21 09:00 Urine Methadone Screen Negative 10/23/21 09:00 Ur Barbiturates Screen Negative 10/23/21 09:00 Ur Phencyclidine Scrn Negative 10/23/21 09:00 Ur Amphetamines Screen Negative 10/23/21 09:00 U Benzodiazepines Scrn Negative 10/23/21 09:00 Urine Cocaine Screen Negative 10/23/21 09:00 U Marijuana (THC) Screen Positive 10/23/21 09:00 Drugs of Abuse Note Disclamer 10/23/21 09:00 SARS-CoV-2 (PCR) Negative (Negative) 10/25/21 11:31 HIV 1&2 Antibody Rapid Non react (Non React) 10/24/21 00:48 HIV P24 Antigen Non react (Non React) 10/24/21 00:48 Real/IV: Voiding Method Toilet Active Medications - Current Medications Current Medications: Generic Name Dose Route Start Last Admin Trade Name Freq PRN Reason Stop Dose Admin Acetaminophen 650 mg 10/23/21 03:21 Acetaminophen 325 Mg Tab PO Q4H PRN Pain MILD(1-3)/Fever >100.5/GARDNER Hydrocodone Bitart/Acetaminophen 2 each 10/23/21 03:21 10/25/21 22:55 Hydrocodone/Acetaminophen 5-325 Mg Tab PO 2 each Q6H PRN Administration Pain, Moderate (4-6) Diphenhydramine HCl 25 mg 10/28/21 06:24 10/29/21 21:53 Diphenhydramine 25 Mg Cap PO 25 mg Q6H PRN Administration Itching Guaifenesin 10 ml 10/24/21 19:29 10/29/21 21:53 Guaifenesin Dm 200/20 Mg Oral Liqd 10 Ml PO 10 ml Q4H PRN Administration Cough Heparin Sodium (Porcine) 5,000 unit 10/23/21 06:00 10/30/21 14:24 Heparin 5,000 Unit/1 Ml Vial SUB-Q 5,000 unit Q8HR KACEY Administration Sodium Chloride 1,000 mls @ 75 mls/hr 10/23/21 04:30 10/30/21 05:35 Nacl 0.9% 1000 Ml IV 75 mls/hr DIRECT KACEY Administration Cefepime HCl 2 gm in 100 mls @ 200 mls/hr 10/23/21 06:00 10/30/21 14:25 Cefepime/Ns 2 Gm/100 Ml IV 200 mls/hr Q8H KACEY Administration Protocol Magnesium Hydroxide 30 ml 10/23/21 04:19 Magnesium Hydroxide (Mom) Oral Liqd Udc PO Q4H PRN Constipation Metronidazole 500 mg 10/24/21 22:00 10/30/21 14:24 Metronidazole 500 Mg Tab PO 500 mg Q8HR KACEY Administration Protocol Morphine Sulfate 4 mg 10/23/21 03:21 Morphine 4 Mg/1 Ml Inj IV Q4H PRN Pain , Severe (7-10) Morphine Sulfate 2 mg 10/23/21 04:19 Morphine 2 Mg/1 Ml Inj IV Q4H PRN Pain, Moderate (4-6) Ondansetron HCl 4 mg 10/23/21 03:21 Ondansetron 4 Mg/2 Ml Inj IV Q8H PRN Nausea And Vomiting Phenytoin 300 mg 10/25/21 22:00 10/29/21 21:54 Phenytoin 100 Mg Capsule.Er PO 300 mg QHS KACEY Administration Sodium Chloride 10 ml 10/23/21 03:21 10/29/21 21:53 Sodium Chloride 0.9% 10 Ml Flush Syringe IV 10 ml PRN PRN Administration LINE FLUSH Sodium Chloride 10 ml 10/23/21 10:00 10/30/21 14:24 Sodium Chloride 0.9% 10 Ml Flush Syringe IV 10 ml BID KACEY Administration Nutrition/Malnutrition Assess - Dietary Evaluation Nutrition/Malnutrition Findings: Nutrition Notes Start: 10/28/21 16:30 Freq: Status: Active Protocol: Document 10/28/21 16:30 WESTON (Rec: 10/28/21 16:50 WESTON [id number]) Nutrition Notes Need for Assessment generated from: LOS Initial or Follow up Assessment Current Diagnosis Malnutrition Other Pertinent Diagnosis Cavitary Pneumonia, Polysubstance Abuse, Anemia. Current Diet Regular Diet (since B 10/23). Labs/Tests 10/28: Na 135, BUN 6, Crea 0.6 , Glu 150. Pertinent Medications 10/28: Nutritionally unremarkable. Height 6 ft Weight 65 kg [place] Body Weight (kg) 80.90 BMI 19.4 Intake Prior to Admission Good Weight change and time frame Pt denies having loss body weight QUALITY INTERN. Weight Status Appropriate Subjective/Other Information RD consult for LOS assessment. Pt's PO intake of meals has been Good (100%), according to ADL notes. Pt is on Room Air, O2 saturation @ 98%, according to Physical Assessment History notes. Percent of energy/protein needs met: Prescribed Regular Diet provides for energy/protein needs (2,289 Kcal/89 g) during LOS. Burn Absent Trauma Absent GI Symptoms None Food Allergy No Skin Integrity/Comment Assessment WNL. Current % PO Good (75-100%) Minimum of two criteria No Fluid Accumulation N/A Reduced Beam Doffer Strength N/A (non-severe) Protein-Calorie Malnutrition N\A #1 Nutrition Diagnosis No nutrition diagnosis at this time Is patient on ventilator? No Is Patient Ambulatory and/or Out of Bed Yes REE-(Custer-St. Jeor-ambulatory/OOB) [ 2069. NUTR.MSJOOB] Kcal/Kg value to use for calculation 35 Approximate Energy Requirements Using 2275 kcal/Kg Calculation Used for Recommendations Kcal/kg Additional Notes Protein: 0.8-1 g/Kg ABW; 52-65 g/day. Fluids: 1 ml/Kcal, or as per MD. Nutrition Intervention Change Diet Order: Continue Regular Diet. Follow-Up By: 11/04/21 Additional Comments Continue monitoring food tolerance, %PO intake of meals , and BM.
[2021-10-30] MEDS: guaiFENesin DM 200/20 MG ORAL LIQD 10 ML PO PRN (21:47)
[2021-10-30] MEDS: diphenhydrAMINE 25 MG CAP PO PRN (21:47)
[2021-10-30] MEDS: PHENYTOIN 100 MG CAPSULE.ER PO SCH (21:48)
[2021-10-31] MEDS: metroNIDAZOLE 500 MG TAB PO SCH ×3 (05:39→21:28)
[2021-10-31] MEDS: HEPARIN 5,000 UNIT/1 ML VIAL SUB-Q SCH ×3 (05:40→21:28)
[2021-10-31] MEDS: CEFEPIME/NS 2 GM/100 ML 2 GM/100 ML BAG IV SCH (05:40)
--- NOTE | 2021-10-31 09:33 | Progress Note ---
Assessment and Plan Assessment and plan: ID, pulmonary evaluation and recommendations noted and appreciated --RUL cavitary/necrotizing pneumonia, r/o TB Continue empiric antibiotics, Follow cultures Pulmonary evaluation noted and appreciated TB testing is in progress Continue oxygen titrate O2 sats to more than 90% Sputum cultures, AFB smears HIV test negative -- Polysubstance abuse; Strongly advised to quit recreational drug use Continue supportive care -- Chronic nicotine dependence, cigarettes Smoking cessation counseling done, risks and consequences and Sequelae of chronic tobacco use discussed in detail with the patient Answered all his questions, verbalized understanding Spent total 17 minutes --Severe protein calorie malnutrition; Nutrition supplements and supportive care Nutrition consult --Normocytic anemia; Probably secondary to underlying disease process Closely monitor H&H and transfuse as needed -- DVT prophylaxis; Subcu heparin Closely monitor the patient and adjust the management as needed Plan of care reviewed with the patient and his nurse Consults and recommendations noted and appreciated Closely monitor the patient and adjust management as needed Follow-up pending AFP work-up Brief history and daily Hospital course ; 40-year-old -[place] male patient was admitted through emergency room w ith worsening shortness of breath and cough chest x-ray findings consistent with fluid-filled cavitary lesion in the right upper lobe with surrounding groundglass appearance Patient was placed in airborne isolation AFB smear, cultures, gold interferon and other tests are requested pending reports Pulmonary and ID following 10/25; ID evaluation recommendation noted and appreciated, Extensive work-up is in progress, continue airborne isolation Funes PCR negative, Follow AFB smears AFB cultures, Gold interferon test reports 10/26; follow pending reports, AFB studies gold interferon test, ID and pulmonary following 10/27; continue current management, pulmonary ID evaluation and recommendations noted ,Extensive evaluation reports pending 10/28; patient anxious to go home, AFB tests are pending reports 10/29; patient has mild cough, cough medicine advised, Pending AFB culture and smear reports 10/31; pending AFP smears x3, cultures, if unable to get, Pulmonary may consider bronchoscopy/BAL, ID pulmonary recommendations noted and appreciated Disposition; follow pending TB work-up History Interval history: Seen and evaluated the patient at the bedside in the isolation room Patient's chart and medications reviewed Patient is anxious to go home Upset that the tests are not available Patient complains of mild cough, no hemoptysis Vital signs noted Hospitalist Physical - Constitutional Vitals: Temp Pulse Resp BP Pulse Ox 98.3 F 80 16 106/62 99 10/30/21 21:06 10/30/21 21:06 10/31/21 06:00 10/30/21 21:06 10/31/21 06:00 General appearance: Present: no acute distress, well-nourished - EENT Eyes: Present: PERRL, EOM intact - Neck Neck: Present: supple, normal ROM - Respiratory Respiratory effort: normal Respiratory: bilateral: diminished, rhonchi, negative: rales, wheezing - Cardiovascular Rhythm: regular Heart Sounds: Present: S1 & S2 - Extremities Extremities: no ischemia, No edema - Abdominal General gastrointestinal: soft, non-tender, non-distended, normal bowel sounds - Integumentary Integumentary: Present: clear, warm - Psychiatric Psychiatric: appropriate mood/affect, cooperative - Neurologic Neurologic: moves all extremities HEART Score - HEART Score Troponin: Troponin T < 0.010 ng/mL (0.00-0.029) 10/22/21 23:44 Results - Labs CBC & Chem 7: 10/24/21 06:27 10/27/21 09:46 Labs: Laboratory Last Values WBC 10.1 K/mm3 (4.5-11.0) 10/24/21 06:27 RBC 3.39 M/mm3 (3.65-5.03) L 10/24/21 06:27 Hgb 11.7 gm/dl (11.8-15.2) L 10/24/21 06:27 Hct 34.3 % (35.5-45.6) L 10/24/21 06:27 MCV 101 fl (84-94) H 10/24/21 06:27 MCH 35 pg (28-32) H 10/24/21 06:27 MCHC 34 % (32-34) 10/24/21 06:27 RDW 13.5 % (13.2-15.2) 10/24/21 06:27 Plt Count 541 K/mm3 (140-440) H 10/24/21 06:27 Lymph % (Auto) 13.8 % (13.4-35.0) 10/24/21 06:27 [place] % (Auto) 6.0 % (0.0-7.3) 10/24/21 06:27 Eos % (Auto) 1.9 % (0.0-4.3) 10/24/21 06:27 Baso % (Auto) 0.6 % (0.0-1.8) 10/24/21 06:27 Lymph # (Auto) 1.4 K/mm3 (1.2-5.4) 10/24/21 06:27 [place] # (Auto) 0.6 K/mm3 (0.0-0.8) 10/24/21 06:27 Eos # (Auto) 0.2 K/mm3 (0.0-0.4) 10/24/21 06:27 Baso # (Auto) 0.1 K/mm3 (0.0-0.1) 10/24/21 06:27 Seg Neutrophils % 77.7 % (40.0-70.0) H 10/24/21 06:27 Seg Neutrophils # 7.8 K/mm3 (1.8-7.7) H 10/24/21 06:27 Sodium 135 mmol/L (137-145) L 10/27/21 09:46 Potassium 4.2 mmol/L (3.6-5.0) 10/27/21 09:46 Chloride 98.9 mmol/L (98-107) 10/27/21 09:46 Carbon Dioxide 29 mmol/L (22-30) 10/27/21 09:46 Anion Gap 11 mmol/L 10/27/21 09:46 BUN 6 mg/dL (9-20) L 10/27/21 09:46 Creatinine 0.6 mg/dL (0.8-1.3) L 10/27/21 09:46 Estimated GFR > 60 ml/min 10/27/21 09:46 BUN/Creatinine Ratio 10 % 10/27/21 09:46 Glucose 150 mg/dL (75-100) H 10/27/21 09:46 POC Glucose 96 mg/dL (70-105) 10/25/21 20:58 Calcium 9.0 mg/dL (8.4-10.2) 10/27/21 09:46 Total Bilirubin 0.30 mg/dL (0.1-1.2) 10/22/21 23:44 AST 19 units/L (5-40) 10/22/21 23:44 ALT 14 units/L (7-56) 10/22/21 23:44 Alkaline Phosphatase 40 units/L (35-129) 10/22/21 23:44 Troponin T < 0.010 ng/mL (0.00-0.029) 10/22/21 23:44 Total Protein 6.6 g/dL (6.3-8.2) 10/22/21 23:44 Albumin 2.8 g/dL (3.9-5) L 10/22/21 23:44 Albumin/Globulin Ratio 0.7 % 10/22/21 23:44 Procalcitonin 0.08 ng/mL (<0.15) 10/25/21 06:10 Urine Color Yellow (Yellow) 10/23/21 09:00 Urine Turbidity Clear (Clear) 10/23/21 09:00 Urine pH 7.0 (5.0-7.0) 10/23/21 09:00 Ur Specific [place] 1.041 (1.003-1.030) H 10/23/21 09:00 Urine Protein 30 mg/dl mg/dL (Negative) 10/23/21 09:00 Urine Glucose (UA) 50 mg/dL (Negative) 10/23/21 09:00 Urine Ketones Neg mg/dL (Negative) 10/23/21 09:00 Urine Blood Neg (Negative) 10/23/21 09:00 Urine Nitrite Neg (Negative) 10/23/21 09:00 Urine Bilirubin Neg (Negative) 10/23/21 09:00 Urine Urobilinogen < 2.0 mg/dL (<2.0) 10/23/21 09:00 Ur Leukocyte Esterase Neg (Negative) 10/23/21 09:00 Urine WBC (Auto) < 1.0 /HPF (0.0-6.0) 10/23/21 09:00 Urine RBC (Auto) 1.0 /HPF (0.0-6.0) 10/23/21 09:00 U Epithel Cells (Auto) < 1.0 /HPF (0-13.0) 10/23/21 09:00 Urine Mucus Few /HPF 10/23/21 09:00 Nasal Screen MRSA (PCR) Negative (Negative) 10/25/21 08:27 Vancomycin Trough 12.3 ug/mL (5.0-20.0) 10/27/21 09:46 Urine Opiates Screen Negative 10/23/21 09:00 Urine Methadone Screen Negative 10/23/21 09:00 Ur Barbiturates Screen Negative 10/23/21 09:00 Ur Phencyclidine Scrn Negative 10/23/21 09:00 Ur Amphetamines Screen Negative 10/23/21 09:00 U Benzodiazepines Scrn Negative 10/23/21 09:00 Urine Cocaine Screen Negative 10/23/21 09:00 U Marijuana (THC) Screen Positive 10/23/21 09:00 Drugs of Abuse Note Disclamer 10/23/21 09:00 SARS-CoV-2 (PCR) Negative (Negative) 10/25/21 11:31 HIV 1&2 Antibody Rapid Non react (Non React) 10/24/21 00:48 HIV P24 Antigen Non react (Non React) 10/24/21 00:48 Real/IV: Voiding Method Toilet Active Medications - Current Medications Current Medications: Generic Name Dose Route Start Last Admin Trade Name Freq PRN Reason Stop Dose Admin Acetaminophen 650 mg 10/23/21 03:21 Acetaminophen 325 Mg Tab PO Q4H PRN Pain MILD(1-3)/Fever >100.5/GARDNER Hydrocodone Bitart/Acetaminophen 2 each 10/23/21 03:21 10/25/21 22:55 Hydrocodone/Acetaminophen 5-325 Mg Tab PO 2 each Q6H PRN Administration Pain, Moderate (4-6) Diphenhydramine HCl 25 mg 10/28/21 06:24 10/30/21 21:47 Diphenhydramine 25 Mg Cap PO 25 mg Q6H PRN Administration Itching Guaifenesin 10 ml 10/24/21 19:29 10/30/21 21:47 Guaifenesin Dm 200/20 Mg Oral Liqd 10 Ml PO 10 ml Q4H PRN Administration Cough Heparin Sodium (Porcine) 5,000 unit 10/23/21 06:00 10/31/21 05:40 Heparin 5,000 Unit/1 Ml Vial SUB-Q 5,000 unit Q8HR KACEY Administration Sodium Chloride 1,000 mls @ 75 mls/hr 10/23/21 04:30 10/30/21 05:35 Nacl 0.9% 1000 Ml IV 75 mls/hr DIRECT KACEY Administration Cefepime HCl 2 gm in 100 mls @ 200 mls/hr 10/23/21 06:00 10/31/21 05:40 Cefepime/Ns 2 Gm/100 Ml IV 200 mls/hr Q8H KACEY Administration Protocol Magnesium Hydroxide 30 ml 10/23/21 04:19 Magnesium Hydroxide (Mom) Oral Liqd Udc PO Q4H PRN Constipation Metronidazole 500 mg 10/24/21 22:00 10/31/21 05:39 Metronidazole 500 Mg Tab PO 500 mg Q8HR KACEY Administration Protocol Morphine Sulfate 4 mg 10/23/21 03:21 Morphine 4 Mg/1 Ml Inj IV Q4H PRN Pain , Severe (7-10) Morphine Sulfate 2 mg 10/23/21 04:19 Morphine 2 Mg/1 Ml Inj IV Q4H PRN Pain, Moderate (4-6) Ondansetron HCl 4 mg 10/23/21 03:21 Ondansetron 4 Mg/2 Ml Inj IV Q8H PRN Nausea And Vomiting Phenytoin 300 mg 10/25/21 22:00 10/30/21 21:48 Phenytoin 100 Mg Capsule.Er PO 300 mg QHS KACEY Administration Sodium Chloride 10 ml 10/23/21 03:21 10/29/21 21:53 Sodium Chloride 0.9% 10 Ml Flush Syringe IV 10 ml PRN PRN Administration LINE FLUSH Sodium Chloride 10 ml 10/23/21 10:00 10/30/21 21:49 Sodium Chloride 0.9% 10 Ml Flush Syringe IV 10 ml BID KACEY Administration Nutrition/Malnutrition Assess - Dietary Evaluation Nutrition/Malnutrition Findings: Nutrition Notes Start: 10/28/21 16 :30 Freq: Status: Active Protocol: Document 10/28/21 16:30 WESTON (Rec: 10/28/21 16:50 WESTON [id number]) Nutrition Notes Need for Assessment generated from: LOS Initial or Follow up Assessment Current Diagnosis Malnutrition Other Pertinent Diagnosis Cavitary Pneumonia, Polysubstance Abuse, Anemia. Current Diet Regular Diet (since B 10/23). Labs/Tests 10/28: Na 135, BUN 6, Crea 0.6 , Glu 150. Pertinent Medications 10/28: Nutritionally unremarkable. Height 6 ft Weight 65 kg [place] Body Weight (kg) 80.90 BMI 19.4 Intake Prior to Admission Good Weight change and time frame Pt denies having loss body weight [employer]. Weight Status Appropriate Subjective/Other Information RD consult for LOS assessment. Pt's PO intake of meals has been Good (100%), according to ADL notes. Pt is on Room Air, O2 saturation @ 98%, according to Physical Assessment History notes. Percent of energy/protein needs met: Prescribed Regular Diet provides for energy/protein needs (2,289 Kcal/89 g) during LOS. Burn Absent Trauma Absent GI Symptoms None Food Allergy No Skin Integrity/Comment Assessment WNL. Current % PO Good (75-100%) Minimum of two criteria No Fluid Accumulation N/A Reduced Merchandise Distributor Strength N/A (non-severe) Protein-Calorie Malnutrition N\A #1 Nutrition Diagnosis No nutrition diagnosis at this time Is patient on ventilator? No Is Patient Ambulatory and/or Out of Bed Yes REE-(Bertrand-St. Jeor-ambulatory/OOB) [ 2069. NUTR.MSJOOB] Kcal/Kg value to use for calculation 35 Approximate Energy Requirements Using 2275 kcal/Kg Calculation Used for Recommendations Kcal/kg Additional Notes Protein: 0.8-1 g/Kg ABW; 52-65 g/day. Fluids: 1 ml/Kcal, or as per MD. Nutrition Intervention Change Diet Order: Continue Regular Diet. Follow-Up By: 11/04/21 Additional Comments Continue monitoring food tolerance, %PO intake of meals , and BM.
--- NOTE | 2021-10-31 11:02 | Progress Note ---
Assessment and Plan Cultures: Blood culture no growth Sputum culture contaminated with saliva HIV: Negative MRSA nasal PCR: Negative A/P: 40-year-old man with polysubstance abuse admitted with: #Cavitary pneumonia: Likely pulmonary abscess given his history of substance abuse and likely related to aspiration. Awaiting AFB rule out Mycobacterium. #Polysubstance abuse Recs: -Cefepime de-escalated to ceftriaxone -Continue metronidazole -Follow-up AFB smear x 3, quantiferon. Please induce sputum if needed. If unable to obtain induced sputum, pulm following, may obtain BAL -Anticipate discharge on PO Augmentin 875 q12h for 4 weeks with follow up in clinic and repeat imaging d/w Dr. Madrigal. Laly Brandon MD, FACP, [facility] ([facility] O: [phone] F: [phone] C: [phone] Subjective Date of service: 10/31/21 Interval history: No fever. Says his cough is better. Also states he has given sputum samples. Objective - Exam Narrative Exam: Physical Exam: Constitutional: Alert, cooperative. No acute distress Head, Ears, Nose: Normocephalic, atraumatic. External ears, nose normal Eyes: Conjunctivae/corneas clear. No icterus. No ptosis. Neck: Supple, no meningeal signs Cardiovascular: S1, S2 + Respiratory: Few right-sided crackles GI: Soft, non-tender; bowel sounds normal. No peritoneal signs Musculoskeletal: No pedal edema, no cyanosis. Skin: No rash or abscess Hem/Lymphatic: No palpable cervical or supraclavicular nodes. No lymphangitis Psych: Mood ok. Affect normal Neurological: Awake, alert, oriented. No gross abnormality - Constitutional Vitals: Vital Signs Temp Pulse Resp BP Pulse Ox 98.3 F 80 16 106/62 99 10/30/21 21:06 10/30/21 21:06 10/31/21 06:00 10/30/21 21:06 10/31/21 06:00 Temperature -Last 24 Hours Temperature 98.3 F Temperature 98 F Temperature 68.0 F - Labs CBC & Chem 7: 10/24/21 06:27 10/27/21 09:46
[2021-10-31] MEDS: cefTRIAXone/NS 2 GM/100 ML 2 GM/100 ML BAG IV SCH (11:36)
[2021-10-31] MEDS: guaiFENesin DM 200/20 MG ORAL LIQD 10 ML PO PRN (21:25)
[2021-10-31] MEDS: PHENYTOIN 100 MG CAPSULE.ER PO SCH (21:28)
[2021-10-31] MEDS: diphenhydrAMINE 25 MG CAP PO PRN (21:28)
[2021-11-01] MEDS: HEPARIN 5,000 UNIT/1 ML VIAL SUB-Q SCH (05:16)
[2021-11-01] MEDS: metroNIDAZOLE 500 MG TAB PO SCH (05:17)
[2021-11-01] MEDS: cefTRIAXone/NS 2 GM/100 ML 2 GM/100 ML BAG IV SCH (11:06)
--- NOTE | 2021-11-01 11:58 | Discharge Summary ---
Providers - Providers Date of Admission: 10/23/21 03:21 Date of discharge: 11/01/21 Attending physician: CHOCO MARQUEZ 10/23/21 04:19 Consult to Physician [CONS] Routine Comment: Consulting Provider: ALEX ALLRED Physician Instructions: Reason For Exam: Pneumonia, ? Lung Abscess 10/23/21 05:42 Consult to Physician [CONS] Routine Comment: Consulting Provider: CRUZ HOOPER Physician Instructions: Reason For Exam: Pneumonia, ?lung abscess Primary care physician: DANNIELLE SOTO Hospitalization Condition: Stable Hospital course: 40-year-old -[place] male patient was admitted through emergency room with worsening shortness of breath and cough chest x-ray findings consistent with fluid-filled cavitary lesion in the right upper lobe with surrounding groundglass appearance Patient was placed in airborne isolation, AFB smear, cultures, gold interferon and other tests are requested. Patient was placed empirically on antibiotics. QuantiFERON-TB test found out to be negative. Pulmonary and ID were following. Patient was then discharged home with 4 weeks of Augmentin for possible lung abscess and recommended outpatient follow-up at ID clinic and repeat imaging after completion of antibiotics. Patient verbalized understanding and discharged back to alf in stable condition. 10/25; ID evaluation recommendation noted and appreciated, Extensive work-up is in progress, continue airborne isolation Funes PCR negative, Follow AFB smears AFB cultures, Gold interferon test reports 10/26; follow pending reports, AFB studies gold interferon test, ID and pulmonary following 10/27; continue current management, pulmonary ID evaluation and recommendations noted ,Extensive evaluation reports pending 10/28; patient anxious to go home, AFB tests are pending reports 10/29; patient has mild cough, cough medicine advised, Pending AFB culture and smear reports 10/31; pending AFP smears x3, cultures, if unable to get, Pulmonary may consider bronchoscopy/BAL, ID pulmonary recommendations noted and appreciated 11/01: TB Gold test is negative, patient will be discharged home with Augmentin for total 4 weeks to treat for possible lung abscess. Patient will be follow-up at ID clinic in 2 to 4 weeks for repeat imaging studies. Disposition: 01 HOME / SELF CARE / HOMELESS Final Discharge Diagnosis (Prints w/discharge instructions): -- Right upper lobe cavitary necrotizing pneumonia vs lung abscess, TB ruled out. -- Polysubstance abuse. -- Chronic nicotine dependence, counseled for cessation. -- Severe protein calorie malnutrition. -- Normocytic anemia Time spent for discharge: 34 minutes Core Measure Documentation - Palliative Care Palliative Care/ Comfort Measures: Not Applicable - Core Measures Any of the following diagnoses?: none Exam - Physical Exam Narrative exam: General appearance: Present: no acute distress, mal-nourished - EENT Eyes: Present: PERRL, EOM intact - Neck Neck: Present: supple, normal ROM - Respiratory Respiratory effort: normal Respiratory: bilateral: diminished, rhonchi, negative: rales, wheezing - Cardiovascular Rhythm: regular Heart Sounds: Present: S1 & S2 - Extremities Extremities: no ischemia, No edema - Abdominal General gastrointestinal: soft, non-tender, non-distended, normal bowel sounds - Integumentary Integumentary: Present: clear, warm - Psychiatric Psychiatric: appropriate mood/affect, cooperative - Neurologic Neurologic: moves all extremities - Constitutional Vitals: Temp Pulse Resp BP Pulse Ox 97.9 F 63 16 101/59 99 11/01/21 01:25 11/01/21 01:25 11/01/21 01:25 11/01/21 01:25 11/01/21 07:54 Plan Activity: advance as tolerated Weight Bearing Status: Weight Bear as Tolerated Diet: regular, per dietitian instruction Additional Instructions: Follow-up in ID clinic in 2 to 4 weeks for repeat imaging studies. Continue Augmentin 875 mg twice daily for total [address] ease come back to the nearest hospital if your symptoms worsen Follow up with: DANNIELLE SOTO MD [Primary Care Provider] - 7 Days BILLY HYDE MD [Staff Physician] - 7 Days Prescriptions: Phenytoin [Dilantin] 300 mg PO QHS #30 capsule.er Amoxicillin/K Clav Tab [Augmentin 875 mg] 1 tab PO Q12HR 28 Days tab guaiFENesin ER [Mucinex ER] 600 mg PO Q12H #60
[2021-11-01 12:22] VITALS: BP 111/68
--- NOTE | 2021-11-01 13:50 | Progress Note ---
Assessment and Plan Cultures: Blood culture no growth Sputum culture contaminated with saliva HIV: Negative MRSA nasal PCR: Negative A/P: 40-year-old man with polysubstance abuse admitted with: #Cavitary pneumonia: Likely pulmonary abscess given his history of substance abuse and likely related to aspiration. TB quantiferon negative. #Polysubstance abuse Recs: -Okay for discharge on PO Augmentin 875 q12h for 4 weeks with follow up in clinic and repeat imaging -Patient states he is unable to afford his medications, recommend social work consult to help arrange antibiotics and other meds Laly Brandon MD, FACP, [facility] O: [phone] F: [phone] C: [phone] Subjective Date of service: 11/01/21 Interval history: Feeling better. TB QuantiFERON gold came back negative. Objective - Exam Narrative Exam: Physical Exam: Constitutional: Alert, cooperative. No acute distress Head, Ears, Nose: Normocephalic, atraumatic. External ears, nose normal Eyes: Conjunctivae/corneas clear. No icterus. No ptosis. Neck: Supple, no meningeal signs Cardiovascular: S1, S2 + Respiratory: Few right-sided crackles GI: Soft, non-tender; bowel sounds normal. No peritoneal signs Musculoskeletal: No pedal edema, no cyanosis. Skin: No rash or abscess Hem/Lymphatic: No palpable cervical or supraclavicular nodes. No lymphangitis Psych: Mood ok. Affect normal Neurological: Awake, alert, oriented. No gross abnormality - Constitutional Vitals: Vital Signs Temp Pulse Resp BP Pulse Ox 97.9 F 82 20 111/68 100 11/01/21 12:20 11/01/21 12:20 11/01/21 12:20 11/01/21 12:20 11/01/21 12:20 Temperature -Last 24 Hours Temperature 97.9 F Temperature 97.9 F Temperature 98.1 F Temperature 98.2 F - Labs CBC & Chem 7: 10/24/21 06:27 10/27/21 09:46
== END 2021-11-01 16:45 | disposition home or self-care (01) | DRG 177 ==
LOC: ED 18:49 → 3A 10-23 03:21
PROVIDERS: ADMIT Internal Medicine Geriatric Medicine; ATTEND Internal Medicine
DX: J85.1 Abscess of lung with pneumonia (principal); E43 Unspecified severe protein-calorie malnutrition; Z20.822 Contact with and (suspected) exposure to COVID-19; Z68.1 Body mass index [BMI] 19.9 or less, adult; R68.89 Other general symptoms and signs; F17.210 Nicotine dependence, cigarettes, uncomplicated; D64.9 Anemia, unspecified; F19.10 Other psychoactive substance abuse, uncomplicated; Z71.6 Tobacco abuse counseling
CPT/HCPCS: 36415; 71045; 71046; 71260; 80048; 80053; 80202; 80307; 81001; 82164; 82962; 84145; 84484; 85025; 87040; 87116; 87205; 87641; 87806; 93005; 99406; G0378; J0692; J0696; J1200; J1644; J3370; J7030; J7050; Q9967; U0003